=== PATIENT | female | born 1935 | race Caucasian/White ===

== ENCOUNTER 2017-10-18 09:28 | Outpatient (CLI) | payer MEDICARE ==
[~2017-10-18 09:28] MED LIST: ACET-812 PO; ALLO100T PO; AMLO2.5T2 PO; APIX5TAB3 PO; ATEN-169 PO; ATOR40TA PO; FERGLU300T PO; FURO-150 PO; LEVO125T PO; LISI40TA4 PO; PANT40TA4 PO; SERT50TA PO
[2017-10-18 10:02] LABS: ABSOLUTE RETICS # 98300 /CUMM (23000-93000); BASOPHILS % (AUTO) 0.4 % (0-1); EOSINOPHILS # (AUTO) 0.1 X10'3 (0-0.9); EOSINOPHILS % (AUTO) 1.7 % (0-6); HEMATOCRIT 39.2 % (35.0-45.0); HEMOGLOBIN 13.4 g/dl (12.0-16.0); LYMPHOCYTES # (AUTO) 2.6 X10'3 (1.1-4.8); LYMPHOCYTES % (AUTO) 36.5 % (21-51); MEAN CORPUSCULAR HEMOGLOBIN 30.5 PG (27.0-31.0); MEAN CORPUSCULAR HGB CONC 34.3 % (33.0-36.5); MEAN CORPUSCULAR VOLUME 89.1 FL (78-98); MEAN PLATELET VOLUME 8.4 FL (7.4-10.4); MONOCYTES # (AUTO) 0.6 X10'3 (0-0.9); MONOCYTES % (AUTO) 8.8 % (2-12); NEUTROPHILS # (AUTO) 3.8 X10'3 (1.8-7.7); NEUTROPHILS % (AUTO) 52.6 % (42-75); PLATELET COUNT 186 X10'3 (140-440); RED CELL DISTRIBUTION WIDTH 17.3 % (11.5-14.5); RETICULOCYTE % (AUTO) 2.2 % (0.5-1.5); WHITE BLOOD COUNT 7.1 X10'3 (4.5-11.0)
[2017-10-18 10:54] LABS: ALANINE AMINOTRANSFERASE 43 U/L (12-78); ALBUMIN 3.9 G/DL (3.4-5.0); ALBUMIN/GLOBULIN RATIO 1.4 (1.1-1.5); ALKALINE PHOSPHATASE 518 IU/L (46-116); ANION GAP 10 (8-16); ASPARTATE AMINO TRANSFERASE 36 U/L (10-37); BILIRUBIN,TOTAL 1.5 MG/DL (0.1-1.0); BLOOD UREA NITROGEN 26 MG/DL (7-18); BUN/CREATININE RATIO 16.1 (6.6-38.0); CALCIUM 8.7 MG/DL (8.5-10.1); CHLORIDE 104 MMOL/L (99-107); CREATININE 1.61 MG/DL (0.40-0.90); FERRITIN 148 NG/ML (8-252); GLUCOSE 110 MG/DL (70-104); LACTATE DEHYDROGENASE 243 U/L (81-234); POTASSIUM 3.9 MMOL/L (3.5-5.1); SODIUM 142 MMOL/L (135-145); TOTAL CARBON DIOXIDE 28.5 MMOL/L (24-32); TOTAL PROTEIN 6.7 G/DL (6.4-8.2); eGFR 31 ML/MIN
[2017-10-18 10:58] LABS: % IRON SATURATION 33 % (11-46); IRON 87 UG/DL (49-151); TOTAL IRON BINDING CAPACITY 267 UG/DL (259-388)
== END 2017-10-18 23:59 | disposition home or self-care (01) ==
LOC: LAB 09:28
PROVIDERS: ATTEND Internal Medicine Hematology & Oncology
DX: C85.90 Non-Hodgkin lymphoma, unspecified, unspecified site (principal); C83.00 Small cell B-cell lymphoma, unspecified site; D64.9 Anemia, unspecified; J44.9 Chronic obstructive pulmonary disease, unspecified; I10 Essential (primary) hypertension
CPT/HCPCS: 36415; 80053; 82607; 82728; 83540; 83550; 83615; 84550; 85025; 85045; 85651

== ENCOUNTER 2018-08-01 08:37 | Day surgery (SDC) | payer MEDICARE ==
[~2018-08-01] VITALS: Ht 160 cm; Wt 64.4 kg
[2018-08-01] MEDS ORDERED: levoFLOXACIN-Levaquin 500mg/D5 100 ML IV ONE (09:15)
[2018-08-01] MEDS ORDERED: metroNIDAZOLE-Flagyl 500mg/NS 100ml IVPB IV ONE (09:15)
[2018-08-01] MEDS ORDERED: PRED5TAB PO (09:27)
[2018-08-01] MEDS ORDERED: CEFD300C3 PO (09:27)
[2018-08-01] MEDS ORDERED: DILT240C10 PO (09:27)
[2018-08-01] MEDS ORDERED: ALB0.5UD IH (09:27)
[2018-08-01] MEDS ORDERED: METO25TA6 PO (09:27)
[2018-08-01] MEDS ORDERED: LORA-512 PO (09:27)
[2018-08-01] MEDS ORDERED: iohexol 300 MG/1 ML 50ml polymer ONE ×2 (09:50→09:52)
[2018-08-01] MEDS ORDERED: LIDOcaine 1%/PF 5ML 10 MG/ML VIAL ONE (09:50)
[2018-08-01 10:02] LABS: BASOPHILS % (AUTO) 0.7 % (0-1); EOSINOPHILS # (AUTO) 0.1 X10'3 (0-0.9); EOSINOPHILS % (AUTO) 1.7 % (0-6); HEMATOCRIT 36.9 % (35.0-45.0); HEMOGLOBIN 12.1 g/dl (12.0-16.0); LYMPHOCYTES # (AUTO) 1.8 X10'3 (1.1-4.8); LYMPHOCYTES % (AUTO) 35.8 % (21-51); MEAN CORPUSCULAR HEMOGLOBIN 27.7 PG (27.0-31.0); MEAN CORPUSCULAR HGB CONC 32.9 g/dL (33.0-36.5); MEAN CORPUSCULAR VOLUME 84.2 FL (78-98); MEAN PLATELET VOLUME 8.4 FL (7.4-10.4); MONOCYTES # (AUTO) 0.5 X10'3 (0-0.9); MONOCYTES % (AUTO) 10.4 % (2-12); NEUTROPHILS # (AUTO) 2.5 X10'3 (1.8-7.7); NEUTROPHILS % (AUTO) 51.4 % (42-75); PLATELET COUNT 195 X10'3 (140-440); RED BLOOD COUNT 4.38 X10'6 (4.20-5.60); RED CELL DISTRIBUTION WIDTH 16.3 % (11.5-14.5); WHITE BLOOD COUNT 4.9 X10'3 (4.5-11.0)
[2018-08-01 10:17] LABS: ALBUMIN 3.5 G/DL (3.4-5.0); ANION GAP 10 (8-16); BLOOD UREA NITROGEN 17 MG/DL (7-18); BUN/CREATININE RATIO 14.9 (6.6-38.0); CALCIUM 8.2 MG/DL (8.5-10.1); CHLORIDE 106 MMOL/L (99-107); CREATININE 1.14 MG/DL (0.40-0.90); GLUCOSE 130 MG/DL (70-104); POTASSIUM 3.7 MMOL/L (3.5-5.1); SODIUM 142 MMOL/L (135-145); TOTAL CARBON DIOXIDE 26.4 MMOL/L (24-32); eGFR 46 ML/MIN
[2018-08-01 10:28] LABS: INR 1.1 INR
[2018-08-01] MEDS ORDERED: midazolam 2 mg/2 ml injection ONE (10:32)
[2018-08-01] MEDS ORDERED: fentaNYL/PF 50MCG/1 ML 2ML syringe ONE (10:32)
[2018-08-01] MEDS ORDERED: LIDOcaine 1%/PF 5ML 10 MG/ML VIAL SQ ONE (10:35)
[2018-08-01] MEDS ORDERED: fentaNYL/PF 50MCG/1 ML 2ML syringe IV PRN (10:35)
[2018-08-01] MEDS ORDERED: midazolam 2 mg/2 ml injection IV PRN (10:35)
[2018-08-01 10:55] VITALS: BP 137/84
[2018-08-01 11:10] VITALS: BP 163/68
[2018-08-01 11:25] VITALS: BP 151/70
[2018-08-01 11:40] VITALS: BP 111/64
[2018-08-01 12:10] VITALS: BP 108/58
[2018-08-01 12:40] VITALS: BP 106/61
== END 2018-08-01 12:45 | disposition home or self-care (01) ==
LOC: SSTAY O 08:37
PROVIDERS: ATTEND Radiology Vascular & Interventional Radiology
DX: K83.1 Obstruction of bile duct (principal); Z48.03 Encounter for change or removal of drains; Z79.899 Other long term (current) drug therapy; Z88.0 Allergy status to penicillin; Z88.8 Allergy status to other drugs, medicaments and biological substances; Z82.49 Family history of ischemic heart disease and other diseases of the circulatory system; Z88.6 Allergy status to analgesic agent
CPT/HCPCS: 36415; 47536; 80048; 85025; 85610; C1769; J1956; J2001; J2250; J3010; J3490; Q9967

== ENCOUNTER 2019-01-16 08:25 | Day surgery (SDC) | payer MEDICARE ==
[~2019-01-16] VITALS: Ht 162.6 cm; Wt 60.9 kg
[~2019-01-16 08:25] MED LIST changes: -ACET-812 PO; +ALB0.5UD IH; -ALLO100T PO; -AMLO2.5T2 PO; -ATEN-169 PO; +CEFD300C3 PO; +DILT240C10 PO; -FERGLU300T PO; +LORA-512 PO; +METO25TA6 PO; +PRED5TAB PO
[2019-01-16 08:46] VITALS: BP 142/99
[2019-01-16] MEDS ORDERED: normal saline 1000ml 1,000 ML IV PRN (08:55)
[2019-01-16] MEDS ORDERED: clindamycin 600mg/D5W 50ml 50 ML IV ONE (08:55)
[2019-01-16] MEDS ORDERED: LIDOcaine 1%/PF 5ML 10 MG/ML VIAL SQ ONE (09:55)
[2019-01-16] MEDS ORDERED: midazolam 2 mg/2 ml injection IV PRN (09:55)
[2019-01-16] MEDS ORDERED: fentaNYL/PF 50MCG/1 ML 2ML syringe IV PRN (09:55)
[2019-01-16] MEDS ORDERED: LIDOcaine 1%/PF 5ML 10 MG/ML VIAL ONE (09:57)
[2019-01-16] MEDS ORDERED: iohexol 300 MG/1 ML 50ml polymer ONE (09:57)
[2019-01-16] MEDS ORDERED: fentaNYL/PF 50MCG/1 ML 2ML syringe ONE (09:59)
[2019-01-16] MEDS ORDERED: midazolam 2 mg/2 ml injection ONE (09:59)
[2019-01-16 10:40] VITALS: BP 128/59
[2019-01-16 10:55] VITALS: BP 126/52
[2019-01-16 11:05] VITALS: BP 117/61
[2019-01-16 11:20] VITALS: BP 117/73
== END 2019-01-16 12:35 | disposition home or self-care (01) ==
LOC: SSTAY O 08:25
PROVIDERS: ATTEND Radiology Vascular & Interventional Radiology
DX: Z48.03 Encounter for change or removal of drains (principal); K83.1 Obstruction of bile duct; I48.91 Unspecified atrial fibrillation; I10 Essential (primary) hypertension; E78.5 Hyperlipidemia, unspecified; E03.9 Hypothyroidism, unspecified; K21.9 Gastro-esophageal reflux disease without esophagitis; Z88.5 Allergy status to narcotic agent; Z88.0 Allergy status to penicillin; Z79.899 Other long term (current) drug therapy; Z85.05 Personal history of malignant neoplasm of liver; Z90.49 Acquired absence of other specified parts of digestive tract; Z98.890 Other specified postprocedural states
CPT/HCPCS: 47536; J2250; J3010; J7030; Q9967; C1729; C1769; J3490

== ENCOUNTER 2019-05-22 08:11 | Day surgery (SDC) | payer MEDICARE ==
[~2019-05-22] VITALS: Ht 160 cm; Wt 62.9 kg
[~2019-05-22 08:11] MED LIST changes: -CEFD300C3 PO; -LORA-512 PO
[2019-05-22] MEDS ORDERED: normal saline 1000ml 1,000 ML IV SCH (08:35)
[2019-05-22] MEDS ORDERED: cefazolin/dext.iso 2gm/100ml 100 ML IV ONE (08:35)
[2019-05-22 08:45] VITALS: BP 131/84
[2019-05-22 09:13] LABS: BASOPHILS % (AUTO) 0.5 % (0-1); EOSINOPHILS # (AUTO) 0.1 X10'3 (0-0.9); EOSINOPHILS % (AUTO) 1.2 % (0-6); HEMATOCRIT 33.3 % (35.0-45.0); LYMPHOCYTES # (AUTO) 1.9 X10'3 (1.1-4.8); LYMPHOCYTES % (AUTO) 26.5 % (21-51); MEAN CORPUSCULAR HEMOGLOBIN 27.4 PG (27.0-31.0); MEAN CORPUSCULAR HGB CONC 33.1 g/dL (33.0-36.5); MEAN CORPUSCULAR VOLUME 82.7 FL (78-98); MEAN PLATELET VOLUME 8.4 FL (7.4-10.4); MONOCYTES # (AUTO) 0.7 X10'3 (0-0.9); MONOCYTES % (AUTO) 9.8 % (2-12); NEUTROPHILS # (AUTO) 4.5 X10'3 (1.8-7.7); PLATELET COUNT 204 X10'3 (140-440); RED BLOOD COUNT 4.03 X10'6 (4.20-5.60); RED CELL DISTRIBUTION WIDTH 15.6 % (11.5-14.5); WHITE BLOOD COUNT 7.3 X10'3 (4.5-11.0)
[2019-05-22 09:17] LABS: ALBUMIN 3.3 G/DL (3.4-5.0); ANION GAP 6 (8-16); BLOOD UREA NITROGEN 23 MG/DL (7-18); CALCIUM 8.8 MG/DL (8.5-10.1); CHLORIDE 109 MMOL/L (99-107); CREATININE 1.15 MG/DL (0.40-0.90); GLUCOSE 137 MG/DL (70-104); SODIUM 145 MMOL/L (135-145); eGFR 45 ML/MIN
[2019-05-22] MEDS ORDERED: BENZ1LOZ61 PO (09:22)
[2019-05-22] MEDS ORDERED: LORA10CA PO (09:22)
[2019-05-22] MEDS ORDERED: MULT-1085 PO (09:22)
[2019-05-22] MEDS ORDERED: DOCU-148 PO (09:22)
[2019-05-22] MEDS ORDERED: POTA10TA19 PO (09:22)
[2019-05-22] MEDS ORDERED: iohexol 300 MG/1 ML 50ml polymer ONE (09:43)
[2019-05-22] MEDS ORDERED: fentaNYL/PF 50MCG/1 ML 2ML syringe ONE (10:23)
[2019-05-22] MEDS ORDERED: levoFLOXACIN-Levaquin 500mg/D5 100 ML IV ONE ×2 (10:35)
[2019-05-22 11:21] VITALS: BP 157/94
[2019-05-22 11:30] VITALS: BP 150/90
[2019-05-22 11:45] VITALS: BP 128/72
== END 2019-05-22 12:25 | disposition home or self-care (01) ==
LOC: SSTAY O 08:11
PROVIDERS: ATTEND Radiology Diagnostic Radiology
DX: Z48.03 Encounter for change or removal of drains (principal); Z88.0 Allergy status to penicillin; Z88.6 Allergy status to analgesic agent; Z88.8 Allergy status to other drugs, medicaments and biological substances; Z79.899 Other long term (current) drug therapy; Z82.49 Family history of ischemic heart disease and other diseases of the circulatory system
CPT/HCPCS: 36415; 47536; 80048; 85025; C1729; C1769; J3010; Q9967

== ENCOUNTER 2019-07-28 06:51 | Day surgery (SDC) | payer MEDICARE ==
[~2019-07-28] VITALS: Ht 157.5 cm; Wt 61.8 kg
[~2019-07-28 06:51] MED LIST changes: +BENZ1LOZ61 PO; +DOCU-148 PO; -LISI40TA4 PO; +LORA10CA PO; +MULT-1085 PO; +POTA10TA19 PO; -PRED5TAB PO
[2019-07-28] MEDS ORDERED: normal saline 1000ml 1,000 ML IV PRN (07:15)
[2019-07-28 07:20] VITALS: BP 151/82
[2019-07-28] MEDS ORDERED: levoFLOXACIN-Levaquin 500mg/D5 100 ML IV ONE (08:35)
[2019-07-28] MEDS ORDERED: fentaNYL/PF 50MCG/1 ML 2ML syringe ONE (08:41)
[2019-07-28] MEDS ORDERED: iohexol 300 MG/1 ML 50ml polymer ONE (09:09)
[2019-07-28] MEDS ORDERED: LIDOcaine 1%/PF 5ML 10 MG/ML VIAL ONE (09:09)
[2019-07-28 09:30] VITALS: BP 140/87
[2019-07-28 09:45] VITALS: BP 130/91
[2019-07-28 10:00] VITALS: BP 126/83
[2019-07-28 10:15] VITALS: BP 132/84
[2019-07-28 10:30] VITALS: BP 140/82
== END 2019-07-28 11:30 | disposition home or self-care (01) ==
LOC: SSTAY O 06:51
PROVIDERS: ATTEND Radiology Vascular & Interventional Radiology
DX: Z48.03 Encounter for change or removal of drains (principal)
CPT/HCPCS: 47536; C1729; C1769; J3010; Q9967

== ENCOUNTER 2019-08-04 12:36 | Day surgery (SDC) | payer MEDICARE ==
[2019-08-04] VITALS (8 sets, daily range): BP systolic 104–122; BP diastolic 48–69
[~2019-08-04] VITALS: Ht 157.5 cm; Wt 60.9 kg
[~2019-08-04 12:36] MED LIST changes: -BENZ1LOZ61 PO
[2019-08-04] MEDS ORDERED: clindamycin 600mg/D5W 50ml 50 ML IV ONE (13:00)
[2019-08-04] MEDS ORDERED: normal saline 1000ml 1,000 ML IV SCH (13:00)
[2019-08-04 13:57] LABS: BASOPHILS % (AUTO) 0.3 % (0-1); EOSINOPHILS % (AUTO) 0.6 % (0-6); HEMOGLOBIN 11.5 g/dl (12.0-16.0); LYMPHOCYTES # (AUTO) 1.7 X10'3 (1.1-4.8); LYMPHOCYTES % (AUTO) 23.3 % (21-51); MEAN CORPUSCULAR HEMOGLOBIN 25.5 PG (27.0-31.0); MEAN CORPUSCULAR HGB CONC 31.9 g/dL (33.0-36.5); MEAN CORPUSCULAR VOLUME 79.9 FL (78-98); MEAN PLATELET VOLUME 8.7 FL (7.4-10.4); MONOCYTES # (AUTO) 0.7 X10'3 (0-0.9); NEUTROPHILS # (AUTO) 4.8 X10'3 (1.8-7.7); NEUTROPHILS % (AUTO) 65.8 % (42-75); PLATELET COUNT 177 X10'3 (140-440); RED BLOOD COUNT 4.51 X10'6 (4.20-5.60); RED CELL DISTRIBUTION WIDTH 18.1 % (11.5-14.5); WHITE BLOOD COUNT 7.3 X10'3 (4.5-11.0)
[2019-08-04 14:02] LABS: ALBUMIN 3.2 G/DL (3.4-5.0); ANION GAP 9 (8-16); BLOOD UREA NITROGEN 22 MG/DL (7-18); CALCIUM 8.2 MG/DL (8.5-10.1); CHLORIDE 107 MMOL/L (99-107); GLUCOSE 103 MG/DL (70-104); POTASSIUM 3.1 MMOL/L (3.5-5.1); SODIUM 142 MMOL/L (135-145); TOTAL CARBON DIOXIDE 26.3 MMOL/L (24-32); eGFR 47 ML/MIN
[2019-08-04] MEDS ORDERED: levoFLOXACIN-Levaquin 500mg/D5 100 ML IV ONE (14:15)
[2019-08-04] MEDS ORDERED: fentaNYL/PF 50MCG/1 ML 2ML syringe ONE (14:29)
[2019-08-04] MEDS ORDERED: midazolam 2 mg/2 ml injection ONE (14:41)
[2019-08-04] MEDS ORDERED: iohexol 300 MG/1 ML 50ml polymer ONE (14:48)
[2019-08-04] MEDS ORDERED: LIDOcaine 1%/PF 5ML 10 MG/ML VIAL ONE (14:48)
== END 2019-08-04 17:20 | disposition home or self-care (01) ==
LOC: SSTAY O 12:36
PROVIDERS: ATTEND Radiology Diagnostic Radiology
DX: Z48.03 Encounter for change or removal of drains (principal); Z79.01 Long term (current) use of anticoagulants
CPT/HCPCS: 36415; 47536; 80048; 85025; 85610; C1729; C1769; J2250; J3010; J7030; Q9967

== ENCOUNTER 2019-09-06 08:43 | Day surgery (SDC) | payer MEDICARE ==
[~2019-09-06] VITALS: Ht 157.5 cm; Wt 62.2 kg
[~2019-09-06 08:43] MED LIST changes: -ALB0.5UD IH
[2019-09-06] MEDS ORDERED: clindamycin 600mg/D5W 50ml 50 ML IV ONE ×2 (09:15→10:26)
[2019-09-06] MEDS ORDERED: normal saline 1000ml 1,000 ML IV SCH (09:15)
[2019-09-06 09:30] VITALS: BP 154/107
[2019-09-06 10:11] LABS: BASOPHILS % (AUTO) 0.7 % (0-1); EOSINOPHILS # (AUTO) 0.2 X10'3 (0-0.9); EOSINOPHILS % (AUTO) 3.3 % (0-6); HEMATOCRIT 31.8 % (35.0-45.0); HEMOGLOBIN 10.2 g/dl (12.0-16.0); LYMPHOCYTES % (AUTO) 19.9 % (21-51); MEAN CORPUSCULAR HEMOGLOBIN 25.3 PG (27.0-31.0); MEAN CORPUSCULAR HGB CONC 32.1 g/dL (33.0-36.5); MEAN CORPUSCULAR VOLUME 78.9 FL (78-98); MEAN PLATELET VOLUME 8.3 FL (7.4-10.4); MONOCYTES # (AUTO) 0.5 X10'3 (0-0.9); MONOCYTES % (AUTO) 9.8 % (2-12); NEUTROPHILS # (AUTO) 3.3 X10'3 (1.8-7.7); NEUTROPHILS % (AUTO) 66.3 % (42-75); PLATELET COUNT 148 X10'3 (140-440); RED BLOOD COUNT 4.03 X10'6 (4.20-5.60); RED CELL DISTRIBUTION WIDTH 17.4 % (11.5-14.5)
[2019-09-06] MEDS ORDERED: iohexol 300 MG/1 ML 50ml polymer ONE (10:20)
[2019-09-06] MEDS ORDERED: fentaNYL/PF 50MCG/1 ML 2ML syringe ONE (10:26)
[2019-09-06] MEDS ORDERED: midazolam 2 mg/2 ml injection ONE (10:26)
[2019-09-06 11:07] VITALS: BP 150/76
== END 2019-09-06 13:00 | disposition home or self-care (01) ==
LOC: SSTAY O 08:43
PROVIDERS: ATTEND Radiology Diagnostic Radiology
DX: T85.638A Leakage of other specified internal prosthetic devices, implants and grafts, initial encounter (principal); Z88.0 Allergy status to penicillin; Z88.5 Allergy status to narcotic agent; Z88.1 Allergy status to other antibiotic agents; Z79.899 Other long term (current) drug therapy; Z82.49 Family history of ischemic heart disease and other diseases of the circulatory system; Y83.8 Other surgical procedures as the cause of abnormal reaction of the patient, or of later complication, without mention of misadventure at the time of the procedure; Y92.89 Other specified places as the place of occurrence of the external cause
CPT/HCPCS: 36415; 47531; 85025; J2250; J3010; J7030; Q9967; J3490

== ENCOUNTER 2019-11-03 06:32 | Day surgery (SDC) | payer MEDICARE ==
[~2019-11-03] VITALS: Ht 157.5 cm; Wt 62.8 kg
[2019-11-03] MEDS ORDERED: normal saline 1000ml 1,000 ML IV PRN (06:55)
[2019-11-03 07:30] VITALS: BP 159/83
[2019-11-03 07:33] LABS: BASOPHILS % (AUTO) 0.6 % (0-1); EOSINOPHILS # (AUTO) 0.1 X10'3 (0-0.9); EOSINOPHILS % (AUTO) 1.1 % (0-6); HEMATOCRIT 30.1 % (35.0-45.0); HEMOGLOBIN 9.7 g/dl (12.0-16.0); LYMPHOCYTES # (AUTO) 1.3 X10'3 (1.1-4.8); LYMPHOCYTES % (AUTO) 21.3 % (21-51); MEAN CORPUSCULAR HEMOGLOBIN 26.2 PG (27.0-31.0); MEAN CORPUSCULAR HGB CONC 32.2 g/dL (33.0-36.5); MEAN CORPUSCULAR VOLUME 81.2 FL (78-98); MONOCYTES # (AUTO) 0.7 X10'3 (0-0.9); MONOCYTES % (AUTO) 11.1 % (2-12); NEUTROPHILS # (AUTO) 4.1 X10'3 (1.8-7.7); NEUTROPHILS % (AUTO) 65.9 % (42-75); PLATELET COUNT 125 X10'3 (140-440); RED BLOOD COUNT 3.71 X10'6 (4.20-5.60); RED CELL DISTRIBUTION WIDTH 20.9 % (11.5-14.5); WHITE BLOOD COUNT 6.2 X10'3 (4.5-11.0)
[2019-11-03 08:08] LABS: ANISOCYTOSIS 3+; MICROCYTOSIS 1+; PLATELET ESTIMATE DECREASED
[2019-11-03 08:09] LABS: POIKILOCYTOSIS 1+
[2019-11-03] MEDS ORDERED: levoFLOXACIN-Levaquin 500mg/D5 100 ML IV ONE (08:40)
[2019-11-03] MEDS ORDERED: fentaNYL/PF 50MCG/1 ML 2ML syringe ONE (08:42)
[2019-11-03] MEDS ORDERED: iohexol 300 MG/1 ML 50ml polymer ONE (08:44)
[2019-11-03 09:48] VITALS: BP 119/89
[2019-11-03 10:01] VITALS: BP 147/99
[2019-11-03 10:15] VITALS: BP 122/93
[2019-11-03 10:30] VITALS: BP 126/97
[2019-11-03 10:45] VITALS: BP 113/85
== END 2019-11-03 11:30 | disposition home or self-care (01) ==
LOC: SSTAY O 06:32
PROVIDERS: ATTEND Radiology Diagnostic Radiology
DX: T85.590A Other mechanical complication of bile duct prosthesis, initial encounter (principal); E78.5 Hyperlipidemia, unspecified; E03.9 Hypothyroidism, unspecified; I10 Essential (primary) hypertension; F32.9 Major depressive disorder, single episode, unspecified; I48.91 Unspecified atrial fibrillation; Z88.0 Allergy status to penicillin; Z88.5 Allergy status to narcotic agent; Z88.1 Allergy status to other antibiotic agents; Z79.899 Other long term (current) drug therapy; Y83.8 Other surgical procedures as the cause of abnormal reaction of the patient, or of later complication, without mention of misadventure at the time of the procedure; Y92.89 Other specified places as the place of occurrence of the external cause
CPT/HCPCS: 36415; 47536; 85025; C1729; C1769; J3010; Q9967; 85008

== ENCOUNTER 2020-01-30 08:21 | Day surgery (SDC) | payer MEDICARE ==
[~2020-01-30] VITALS: Ht 157.5 cm; Wt 63.6 kg
[~2020-01-30 08:21] MED LIST changes: -PANT40TA4 PO; +PANT40TA54 PO
[2020-01-30] MEDS ORDERED: levoFLOXACIN-Levaquin 500mg/D5 100 ML IV ONE (08:40)
[2020-01-30] MEDS ORDERED: normal saline 1000ml 1,000 ML IV SCH (08:40)
[2020-01-30 09:00] VITALS: BP 133/67
[2020-01-30 09:37] LABS: BASOPHILS % (AUTO) 0.5 % (0-1); EOSINOPHILS # (AUTO) 0.1 X10'3 (0-0.9); HEMATOCRIT 31.9 % (35.0-45.0); HEMOGLOBIN 10.2 g/dl (12.0-16.0); LYMPHOCYTES # (AUTO) 1.1 X10'3 (1.1-4.8); LYMPHOCYTES % (AUTO) 19.8 % (21-51); MEAN CORPUSCULAR HEMOGLOBIN 25.7 PG (27.0-31.0); MEAN CORPUSCULAR HGB CONC 31.9 g/dL (33.0-36.5); MEAN CORPUSCULAR VOLUME 80.4 FL (78-98); MEAN PLATELET VOLUME 8.5 FL (7.4-10.4); MONOCYTES # (AUTO) 0.5 X10'3 (0-0.9); MONOCYTES % (AUTO) 9.3 % (2-12); NEUTROPHILS % (AUTO) 69.4 % (42-75); PLATELET COUNT 164 X10'3 (140-440); RED BLOOD COUNT 3.97 X10'6 (4.20-5.60); RED CELL DISTRIBUTION WIDTH 17.2 % (11.5-14.5); WHITE BLOOD COUNT 5.7 X10'3 (4.5-11.0)
[2020-01-30] MEDS ORDERED: iohexol 300 MG/1 ML 50ml polymer ONE (10:18)
[2020-01-30] MEDS ORDERED: LIDOcaine 1%/PF 5ML 10 MG/ML VIAL ONE (10:18)
[2020-01-30 11:15] VITALS: BP 149/100
== END 2020-01-30 11:50 | disposition home or self-care (01) ==
LOC: SSTAY O 08:21
PROVIDERS: ATTEND Radiology Diagnostic Radiology
DX: T85.590A Other mechanical complication of bile duct prosthesis, initial encounter (principal); E78.5 Hyperlipidemia, unspecified; I10 Essential (primary) hypertension; E03.9 Hypothyroidism, unspecified; F32.9 Major depressive disorder, single episode, unspecified; I48.91 Unspecified atrial fibrillation; Z88.0 Allergy status to penicillin; Z88.5 Allergy status to narcotic agent; Z88.1 Allergy status to other antibiotic agents; Z79.899 Other long term (current) drug therapy; Y83.8 Other surgical procedures as the cause of abnormal reaction of the patient, or of later complication, without mention of misadventure at the time of the procedure; Y92.89 Other specified places as the place of occurrence of the external cause
CPT/HCPCS: 36415; 47536; 85025; C1729; C1769; Q9967

== ENCOUNTER 2020-08-19 08:44 | Day surgery (SDC) | payer MEDICARE ==
[~2020-08-19] VITALS: Ht 157.5 cm; Wt 118.0 kg
[~2020-08-19 08:44] MED LIST changes: +LOP25T PO; -METO25TA6 PO
[2020-08-19] MEDS ORDERED: normal saline 1000ml 1,000 ML IV SCH (09:10)
[2020-08-19 09:12] VITALS: BP 178/131
[2020-08-19] MEDS ORDERED: LIDOcaine 1%/PF 5ML 10 MG/ML VIAL ONE (10:43)
[2020-08-19] MEDS ORDERED: iohexol 300 MG/1 ML 50ml polymer ONE (10:44)
[2020-08-19 11:58] VITALS: BP 165/128
[2020-08-19 12:15] VITALS: BP 146/86
[2020-08-19 12:30] VITALS: BP 126/63
[2020-08-19 12:44] VITALS: BP 116/68
== END 2020-08-19 13:25 | disposition home or self-care (01) ==
LOC: SSTAY O 08:44
PROVIDERS: ATTEND Radiology Diagnostic Radiology
DX: T85.898A Other specified complication of other internal prosthetic devices, implants and grafts, initial encounter (principal); Y83.8 Other surgical procedures as the cause of abnormal reaction of the patient, or of later complication, without mention of misadventure at the time of the procedure; Z88.0 Allergy status to penicillin; Z88.6 Allergy status to analgesic agent; Z88.8 Allergy status to other drugs, medicaments and biological substances; Z79.899 Other long term (current) drug therapy
CPT/HCPCS: 47536; C1729; C1769; Q9967

== ENCOUNTER 2020-12-12 08:28 | Day surgery (SDC) | payer MEDICARE ==
[~2020-12-12] VITALS: Ht 160 cm; Wt 64.5 kg
[2020-12-12] MEDS ORDERED: normal saline 1000ml 1,000 ML IV SCH ×2 (08:55→10:45)
[2020-12-12] MEDS ORDERED: levoFLOXACIN-Levaquin 500mg/D5 100 ML IV ONE (09:10)
[2020-12-12 09:30] LABS: BASOPHILS % (AUTO) 0.5 % (0-1); EOSINOPHILS % (AUTO) 0.6 % (0-6); HEMOGLOBIN 10.2 g/dl (12.0-16.0); LYMPHOCYTES # (AUTO) 0.9 X10'3 (1.1-4.8); LYMPHOCYTES % (AUTO) 21.1 % (21-51); MEAN CORPUSCULAR HEMOGLOBIN 25.8 PG (27.0-31.0); MEAN CORPUSCULAR HGB CONC 31.8 g/dL (33.0-36.5); MEAN CORPUSCULAR VOLUME 81.2 FL (78-98); MEAN PLATELET VOLUME 8.4 FL (7.4-10.4); MONOCYTES # (AUTO) 0.5 X10'3 (0-0.9); NEUTROPHILS % (AUTO) 66.8 % (42-75); PLATELET COUNT 161 X10'3 (140-440); RED BLOOD COUNT 3.95 X10'6 (4.20-5.60); RED CELL DISTRIBUTION WIDTH 18.8 % (11.5-14.5); WHITE BLOOD COUNT 4.4 X10'3 (4.5-11.0)
[2020-12-12 09:32] VITALS: BP 149/96
[2020-12-12] MEDS ORDERED: LIDOcaine 1%/PF 5ML 10 MG/ML VIAL ONE (09:55)
[2020-12-12] MEDS ORDERED: iohexol 300 MG/1 ML 50ml polymer ONE (09:55)
[2020-12-12] MEDS ORDERED: fentaNYL/PF 50MCG/1 ML 2ML syringe ONE (10:13)
[2020-12-12 10:30] LABS: ANISOCYTOSIS 2+; BURR CELLS FEW; ELLIPTOCYTES 2+; PLATELET ESTIMATE NORMAL; SCHISTOCYTES FEW
[2020-12-12 10:50] VITALS: BP 160/60
[2020-12-12 11:05] VITALS: BP 120/77
[2020-12-12 11:20] VITALS: BP 127/66
[2020-12-12 11:35] VITALS: BP 120/66
== END 2020-12-12 12:08 | disposition home or self-care (01) ==
LOC: SSTAY O 08:28
PROVIDERS: ATTEND Radiology Diagnostic Radiology
DX: T85.590A Other mechanical complication of bile duct prosthesis, initial encounter (principal); K83.1 Obstruction of bile duct; E78.5 Hyperlipidemia, unspecified; I10 Essential (primary) hypertension; E03.9 Hypothyroidism, unspecified; F32.9 Major depressive disorder, single episode, unspecified; I48.91 Unspecified atrial fibrillation; Z88.0 Allergy status to penicillin; Z88.5 Allergy status to narcotic agent; Z88.1 Allergy status to other antibiotic agents; Z79.899 Other long term (current) drug therapy; Z79.01 Long term (current) use of anticoagulants; Z82.49 Family history of ischemic heart disease and other diseases of the circulatory system; Y83.8 Other surgical procedures as the cause of abnormal reaction of the patient, or of later complication, without mention of misadventure at the time of the procedure; Y92.89 Other specified places as the place of occurrence of the external cause
CPT/HCPCS: 36415; 47536; 85025; 85610; C1729; C1769; J3010; Q9967; 85008

== ENCOUNTER 2021-03-03 06:40 | Day surgery (SDC) | payer MEDICARE ==
[~2021-03-03] VITALS: Ht 157.5 cm; Wt 64.4 kg
[~2021-03-03 06:40] MED LIST changes: -POTA10TA19 PO
[2021-03-03] MEDS ORDERED: normal saline 1000ml 1,000 ML IV SCH ×2 (07:10→08:50)
[2021-03-03 07:26] VITALS: BP 135/51
[2021-03-03 07:51] LABS: BASOPHILS % (AUTO) 0.6 % (0-1); EOSINOPHILS % (AUTO) 0.6 % (0-6); HEMATOCRIT 29.2 % (35.0-45.0); HEMOGLOBIN 9.4 g/dl (12.0-16.0); LYMPHOCYTES # (AUTO) 1.1 X10'3 (1.1-4.8); LYMPHOCYTES % (AUTO) 18.2 % (21-51); MEAN CORPUSCULAR HEMOGLOBIN 24.9 PG (27.0-31.0); MEAN CORPUSCULAR HGB CONC 32.1 g/dL (33.0-36.5); MEAN CORPUSCULAR VOLUME 77.7 FL (78-98); MEAN PLATELET VOLUME 8.6 FL (7.4-10.4); MONOCYTES # (AUTO) 0.8 X10'3 (0-0.9); MONOCYTES % (AUTO) 12.5 % (2-12); NEUTROPHILS # (AUTO) 4.3 X10'3 (1.8-7.7); NEUTROPHILS % (AUTO) 68.1 % (42-75); PLATELET COUNT 169 X10'3 (140-440); RED BLOOD COUNT 3.76 X10'6 (4.20-5.60); RED CELL DISTRIBUTION WIDTH 19.7 % (11.5-14.5); WHITE BLOOD COUNT 6.3 X10'3 (4.5-11.0)
[2021-03-03 08:16] LABS: ANISOCYTOSIS 2+; ELLIPTOCYTES FEW; GIANT PLATELET FEW; LARGE PLATELETS FEW; MICROCYTOSIS 1+; PLATELET ESTIMATE NORMAL; SCHISTOCYTES FEW; TEAR DROP CELLS FEW
[2021-03-03] MEDS ORDERED: LIDOcaine 1% (10mg/ml) 2ml vial ONE (08:39)
[2021-03-03] MEDS ORDERED: iohexol 300 MG/1 ML 50ml polymer ONE (08:39)
[2021-03-03] MEDS ORDERED: levoFLOXACIN-Levaquin 500mg/D5 100 ML IV ONE (08:50)
[2021-03-03] MEDS ORDERED: fentaNYL/PF 50MCG/1 ML 2ML syringe ONE (09:00)
[2021-03-03 09:33] VITALS: BP 136/55
[2021-03-03 09:47] VITALS: BP 129/41
[2021-03-03 10:02] VITALS: BP 126/51
[2021-03-03 10:15] VITALS: BP 122/50
== END 2021-03-03 10:30 | disposition home or self-care (01) ==
LOC: SSTAY O 06:40
PROVIDERS: ATTEND Radiology Diagnostic Radiology
DX: Z48.03 Encounter for change or removal of drains (principal); I10 Essential (primary) hypertension; E78.5 Hyperlipidemia, unspecified; I48.91 Unspecified atrial fibrillation; F32.9 Major depressive disorder, single episode, unspecified; Z88.0 Allergy status to penicillin; Z88.5 Allergy status to narcotic agent; Z88.1 Allergy status to other antibiotic agents; Z79.899 Other long term (current) drug therapy; Z82.49 Family history of ischemic heart disease and other diseases of the circulatory system
CPT/HCPCS: 36415; 47536; 85025; C1729; C1769; J3010; J3490; Q9967; 85008

== ENCOUNTER 2021-05-27 08:38 | Day surgery (SDC) | payer MEDICARE ==
[~2021-05-27] VITALS: Ht 157.5 cm; Wt 64.7 kg
[2021-05-27] MEDS ORDERED: normal saline 1000ml 1,000 ML IV PRN (09:10)
[2021-05-27] MEDS ORDERED: LORA-269 PO (09:20)
[2021-05-27 10:07] VITALS: BP 132/68
[2021-05-27] MEDS ORDERED: LIDOcaine 1% (10mg/ml) 2ml vial ONE (10:47)
[2021-05-27] MEDS ORDERED: iohexol 300 MG/1 ML 50ml polymer ONE (10:48)
[2021-05-27 11:30] VITALS: BP 126/63
== END 2021-05-27 12:08 ==
LOC: SSTAY O 08:38
PROVIDERS: ATTEND Radiology Vascular & Interventional Radiology
DX: Z48.03 Encounter for change or removal of drains (principal); K83.1 Obstruction of bile duct; Z88.0 Allergy status to penicillin; Z88.1 Allergy status to other antibiotic agents; Z88.5 Allergy status to narcotic agent; Z79.899 Other long term (current) drug therapy; Z79.01 Long term (current) use of anticoagulants; Z82.49 Family history of ischemic heart disease and other diseases of the circulatory system
CPT/HCPCS: 47536; C1729; C1769; J3490; Q9967

== ENCOUNTER 2022-01-27 08:41 | Day surgery (SDC) | payer MEDICARE ==
[2022-01-27] VITALS (7 sets, daily range): BP systolic 115–139; BP diastolic 50–70
[~2022-01-27] VITALS: Ht 160 cm; Wt 56.6 kg
[~2022-01-27 08:41] MED LIST changes: -ATOR40TA PO; -FURO-150 PO; +FURO40TA4 PO; +HYDR4TAB45 PO; -LOP25T PO; +POTA-192 PO; +SENN1TAB61 PO
[2022-01-27] MEDS ORDERED: normal saline 1000ml 1,000 ML IV PRN (09:05)
[2022-01-27 09:40] LABS: EOSINOPHILS % (AUTO) 0.9 % (0-6); HEMATOCRIT 33.4 % (35.0-45.0); HEMOGLOBIN 10.6 g/dl (12.0-16.0); LYMPHOCYTES # (AUTO) 1.2 X10'3 (1.1-4.8); LYMPHOCYTES % (AUTO) 27.1 % (21-51); MEAN CORPUSCULAR HEMOGLOBIN 27.3 PG (27.0-31.0); MEAN CORPUSCULAR HGB CONC 31.7 g/dL (33.0-36.5); MEAN CORPUSCULAR VOLUME 86.2 FL (78-98); MEAN PLATELET VOLUME 8.1 FL (7.4-10.4); MONOCYTES # (AUTO) 0.4 X10'3 (0-0.9); MONOCYTES % (AUTO) 10.2 % (2-12); NEUTROPHILS # (AUTO) 2.7 X10'3 (1.8-7.7); NEUTROPHILS % (AUTO) 60.8 % (42-75); PLATELET COUNT 161 X10'3 (140-440); RED BLOOD COUNT 3.88 X10'6 (4.20-5.60); RED CELL DISTRIBUTION WIDTH 18.4 % (11.5-14.5); WHITE BLOOD COUNT 4.4 X10'3 (4.5-11.0)
[2022-01-27] MEDS ORDERED: tylenol (09:47)
[2022-01-27] MEDS ORDERED: colace (09:47)
[2022-01-27] MEDS ORDERED: iohexol 300mg/ml 100ml inj. ONE (10:08)
[2022-01-27] MEDS ORDERED: levoFLOXACIN-Levaquin 500mg/D5 100 ML IV ONE (10:40)
== END 2022-01-27 13:05 | disposition home or self-care (01) ==
LOC: SSTAY O 08:41
PROVIDERS: ATTEND Radiology Diagnostic Radiology
DX: Z46.82 Encounter for fitting and adjustment of non-vascular catheter (principal); K83.1 Obstruction of bile duct; E78.5 Hyperlipidemia, unspecified; I10 Essential (primary) hypertension; E03.9 Hypothyroidism, unspecified; I48.91 Unspecified atrial fibrillation; F32.A Depression, unspecified; C85.10 Unspecified B-cell lymphoma, unspecified site; J44.9 Chronic obstructive pulmonary disease, unspecified; Z88.0 Allergy status to penicillin; Z88.5 Allergy status to narcotic agent; Z88.1 Allergy status to other antibiotic agents; Z79.890 Hormone replacement therapy; Z79.01 Long term (current) use of anticoagulants; Z79.899 Other long term (current) drug therapy; Z82.49 Family history of ischemic heart disease and other diseases of the circulatory system; Z95.828 Presence of other vascular implants and grafts; Z88.6 Allergy status to analgesic agent; Z98.890 Other specified postprocedural states
CPT/HCPCS: 36415; 47536; 85025; C1729; C1769; J7030; Q9967

== ENCOUNTER 2022-04-29 11:03 | Day surgery (SDC) | payer MEDICARE ==
[~2022-04-29] VITALS: Ht 157.5 cm; Wt 57.4 kg
[~2022-04-29 11:03] MED LIST changes: +colace; +tylenol
[2022-04-29] MEDS ORDERED: normal saline 1000ml 1,000 ML IV PRN (11:25)
[2022-04-29] MEDS ORDERED: clindamycin 600mg/D5W 50ml 50 ML IV ONE (11:25)
[2022-04-29] MEDS ORDERED: levoFLOXACIN-Levaquin 500mg/D5 100 ML IV ONE (11:25)
[2022-04-29 11:30] VITALS: BP 152/75
[2022-04-29] MEDS ORDERED: iohexol 300mg/ml 100ml inj. ONE (11:47)
[2022-04-29 12:36] VITALS: BP 118/88
[2022-04-29 12:53] VITALS: BP 143/87
[2022-04-29 13:06] VITALS: BP 110/55
== END 2022-04-29 14:05 ==
LOC: SSTAY O 11:03
PROVIDERS: ATTEND Radiology Vascular & Interventional Radiology
DX: Z46.59 Encounter for fitting and adjustment of other gastrointestinal appliance and device (principal); K83.1 Obstruction of bile duct; Z88.0 Allergy status to penicillin; Z88.8 Allergy status to other drugs, medicaments and biological substances; Z88.5 Allergy status to narcotic agent; Z79.899 Other long term (current) drug therapy; Z79.01 Long term (current) use of anticoagulants; Z82.49 Family history of ischemic heart disease and other diseases of the circulatory system
CPT/HCPCS: 47536; C1729; C1769; J7030; Q9967

== ENCOUNTER 2022-07-28 11:19 | Day surgery (SDC) | payer MEDICARE ==
[2022-07-28] VITALS (8 sets, daily range): BP systolic 126–150; BP diastolic 60–90
[~2022-07-28] VITALS: Ht 160 cm; Wt 59.3 kg
[~2022-07-28 11:19] MED LIST changes: -LORA10CA PO; -colace; -tylenol
[2022-07-28] MEDS ORDERED: normal saline 1000ml 1,000 ML IV PRN (12:00)
[2022-07-28] MEDS ORDERED: ALBU90AE INH (12:06)
[2022-07-28] MEDS ORDERED: BENZ1LOZ74 PO (12:06)
[2022-07-28] MEDS ORDERED: LORA10CA PO (12:06)
[2022-07-28] MEDS ORDERED: BISA10SU11 RC (12:06)
[2022-07-28] MEDS ORDERED: HALO1TAB PO (12:06)
[2022-07-28] MEDS ORDERED: ACET-75 PO (12:06)
[2022-07-28] MEDS ORDERED: HYDR2TAB7 PO (12:06)
[2022-07-28] MEDS ORDERED: DILT120T3 PO (12:06)
[2022-07-28] MEDS ORDERED: HYOS-26 SL (12:06)
[2022-07-28] MEDS ORDERED: GUAI600T45 PO (12:06)
[2022-07-28] MEDS ORDERED: iohexol 300 MG/1 ML 50ml polymer ONE (13:13)
[2022-07-28] MEDS ORDERED: CLINDAMYCIN 600mg IN NS 50ML 50 ML IV ONE ×2 (14:22→14:30)
== END 2022-07-28 16:15 | disposition home or self-care (01) ==
LOC: SSTAY O 11:19
PROVIDERS: ATTEND Radiology Vascular & Interventional Radiology
DX: T85.590A Other mechanical complication of bile duct prosthesis, initial encounter (principal); E78.5 Hyperlipidemia, unspecified; I10 Essential (primary) hypertension; E03.9 Hypothyroidism, unspecified; F32.A Depression, unspecified; I48.91 Unspecified atrial fibrillation; Z88.0 Allergy status to penicillin; Z88.8 Allergy status to other drugs, medicaments and biological substances; Z88.5 Allergy status to narcotic agent; Z88.1 Allergy status to other antibiotic agents; Z79.899 Other long term (current) drug therapy; Z82.49 Family history of ischemic heart disease and other diseases of the circulatory system; Y83.8 Other surgical procedures as the cause of abnormal reaction of the patient, or of later complication, without mention of misadventure at the time of the procedure; Y92.89 Other specified places as the place of occurrence of the external cause
CPT/HCPCS: 47536; C1729; C1769; J3490; J7030; Q9967

== ENCOUNTER 2022-11-06 11:02 | Day surgery (SDC) | payer MEDICARE ==
[~2022-11-06] VITALS: Ht 157.5 cm; Wt 55.7 kg
[~2022-11-06 11:02] MED LIST changes: +ACET-75 PO; +ALBU90AE INH; +BENZ1LOZ74 PO; +BISA10SU11 RC; +DILT120T3 PO; -DILT240C10 PO; +GUAI600T45 PO; +HALO1TAB PO; +HYDR2TAB7 PO; -HYDR4TAB45 PO; +HYOS-26 SL; +LORA10CA PO
[2022-11-06] MEDS ORDERED: normal saline 1000ml 1,000 ML IV PRN (11:45)
[2022-11-06] MEDS ORDERED: LEVO137T2 PO (11:48)
[2022-11-06] MEDS ORDERED: CHOL200042 (11:48)
[2022-11-06] MEDS ORDERED: DOXY-224 PO (11:48)
[2022-11-06] MEDS ORDERED: MUPI22OI30 (11:48)
[2022-11-06 12:00] VITALS: RESP 16; O2SAT 99
[2022-11-06 12:07] VITALS: BP 113/78; PULSE 99; RESP 16; TEMP 97.6; O2SAT 99
[2022-11-06] MEDS ORDERED: LIDOcaine 1% 30ml preserv. free vial ONE (12:39)
[2022-11-06] MEDS ORDERED: iohexol 300 MG/1 ML 50ml polymer ONE (12:39)
[2022-11-06 13:25] VITALS: BP 129/81; PULSE 80; RESP 16; O2SAT 100
[2022-11-06 13:30] VITALS: BP 95/52; PULSE 80; RESP 16; O2SAT 97
[2022-11-06 13:45] VITALS: BP 105/66; PULSE 73; RESP 16; O2SAT 99
== END 2022-11-06 14:40 | disposition home or self-care (01) ==
LOC: SSTAY O 11:02
PROVIDERS: ATTEND Radiology Vascular & Interventional Radiology
DX: T85.590A Other mechanical complication of bile duct prosthesis, initial encounter (principal); E78.5 Hyperlipidemia, unspecified; I10 Essential (primary) hypertension; E03.9 Hypothyroidism, unspecified; F32.A Depression, unspecified; I48.91 Unspecified atrial fibrillation; Z88.0 Allergy status to penicillin; Z88.8 Allergy status to other drugs, medicaments and biological substances; Z88.5 Allergy status to narcotic agent; Z79.899 Other long term (current) drug therapy; Z82.49 Family history of ischemic heart disease and other diseases of the circulatory system; Y83.8 Other surgical procedures as the cause of abnormal reaction of the patient, or of later complication, without mention of misadventure at the time of the procedure; Y92.89 Other specified places as the place of occurrence of the external cause
CPT/HCPCS: 47536; C1729; C1769; J3490; J7030; Q9967; A4421; A6258

== ENCOUNTER 2022-12-14 10:55 | Inpatient (IN) | payer MEDICARE ==
[2022-12-14] VITALS (7 sets, daily range): BP systolic 126–163; BP diastolic 61–93; PULSE 68–110; RESP 14–20; TEMP 97.1–98.4; O2SAT 96–98
[~2022-12-14] VITALS: Ht 160 cm; Wt 54.6 kg
[~2022-12-14 10:55] MED LIST changes: -ACET-75 PO; +APIX2.5T PO; -APIX5TAB3 PO; +ASPI-611 PO; -BISA10SU11 RC; +CARCD120C PO; +CHOL200042 PO; +CLOP-32 PO; -DILT120T3 PO; -HALO1TAB PO; -HYOS-26 SL; -LEVO125T PO; +LEVO137T2 PO; -LORA10CA PO; +ROSU20TA2 PO
[2022-12-14] MEDS ORDERED: HYDROmorphone inj. 0.5 MG/0.5 ML DISP.SYRIN IV PRN (13:30)
[2022-12-14] MEDS ORDERED: heparin 25,000 UNIT/250ml bag 250 ML IV PRN (13:30)
[2022-12-14] MEDS ORDERED: heparin 10,000 units/1 ML INJ IV ONE (13:30)
[2022-12-14] MEDS ORDERED: magnesium 2GM in 50ml NS 50 ML IV PRN (13:30)
[2022-12-14] MEDS ORDERED: HYDROmorphone/PF 0.2 MG/ML SYRINGE IV PRN (13:30)
[2022-12-14] MEDS ORDERED: ondansetron/PF 4mg/2ml inj IV PRN (13:30)
[2022-12-14] MEDS ORDERED: mag hydrox/Alum hydrox/simeth 30ml oral suspension PO PRN (13:30)
[2022-12-14] MEDS ORDERED: potassium Cl 40MEQ/1/2NS 520ml 520 ML IV PRN (13:30)
[2022-12-14] MEDS ORDERED: heparin 10,000 units/1 ML INJ IV PRN ×2 (13:30→13:40)
[2022-12-14] MEDS ORDERED: magnesium 4gm in 100ml NS 100 ML IV PRN (13:30)
[2022-12-14] MEDS ORDERED: HYDROmorphone 2mg tablet PO PRN (14:15)
[2022-12-14 14:40] LABS: APTT 35 SECONDS (22-32); INR 1.6 INR; PROTHROMBIN TIME 16.3 SECONDS (9.0-12.0)
[2022-12-14] MEDS: normal saline 1000ml 1,000 ML IV SCH (15:02)
[2022-12-14] MEDS ORDERED: midazolam 1 mg/ML 2ml injection ONE (15:10)
[2022-12-14] MEDS ORDERED: LIDOcaine 1% 30ml preserv. free vial ONE (15:10)
[2022-12-14] MEDS ORDERED: iohexol 350MG/ML 100ml bottle IV ONE (15:10)
[2022-12-14] MEDS ORDERED: fentaNYL/PF 50MCG/1 ML 2ML syringe ONE (15:10)
[2022-12-14] MEDS ORDERED: heparin 1,000unit/ml 10ml vial 0 ML ONE (15:10)
[2022-12-14] MEDS ORDERED: nitroGLYCERIN 500mcg/5mL D5W 5 ML IV ONE (15:16)
[2022-12-14] MEDS ORDERED: clopidogrel 300mg tablet ONE (16:39)
--- NOTE | 2022-12-14 18:30 | NUR ---
Problems reprioritized. Patient report given, questions answered & plan of care reviewed with Yessica Addendum: 12/14/22 at 1830 by Gilson Neil RN Amended: Links added.
--- NOTE | 2022-12-14 19:25 | NUR ---
MD called for pt uncontrolled pain. MD ordered Dilaudid IV PRN 1 mg Q4H, to start now. Order read back and placed per
[2022-12-14] MEDS: HYDROmorphone 1 mg/ml syringe IV PRN (19:38)
[2022-12-14] MEDS: K and/or MAG REPLACEMENT MC SCH (20:00)
[2022-12-14] MEDS: docusate sod 100mg capsule PO SCH (20:00)
[2022-12-15] VITALS (9 sets, daily range): BP systolic 115–151; BP diastolic 64–93; PULSE 62–101; RESP 14–22; TEMP 96.8–97.6; O2SAT 94–100
[2022-12-15] MEDS: HYDROmorphone 1 mg/ml syringe IV PRN (00:26)
[2022-12-15] MEDS: normal saline 1000ml 1,000 ML IV SCH ×2 (04:27→21:04)
--- NOTE | 2022-12-15 06:33 | NUR ---
Problems reprioritized. Patient report given, questions answered & plan of care reviewed with Murray RN and Amparo RN.
--- NOTE | 2022-12-15 06:46 | NUR ---
Patient in room PCU 3012. I have received report from Yessica VALDIVIA and had the opportunity to ask questions and assume patient care.
[2022-12-15] MEDS ORDERED: HYDROmorphone 2mg tablet PO PRN (07:30)
[2022-12-15 07:38] LABS: BASOPHILS % (AUTO) 0.5 % (0-1); EOSINOPHILS % (AUTO) 0.1 % (0-6); HEMATOCRIT 36.1 % (35.0-45.0); HEMOGLOBIN 11.3 g/dl (12.0-16.0); LYMPHOCYTES # (AUTO) 0.9 X10'3 (1.1-4.8); MEAN CORPUSCULAR HEMOGLOBIN 28.5 PG (27.0-31.0); MEAN CORPUSCULAR HGB CONC 31.4 g/dL (33.0-36.5); MEAN CORPUSCULAR VOLUME 90.7 FL (78-98); MEAN PLATELET VOLUME 9.4 FL (7.4-10.4); MONOCYTES # (AUTO) 0.8 X10'3 (0-0.9); NEUTROPHILS # (AUTO) 7.7 X10'3 (1.8-7.7); NEUTROPHILS % (AUTO) 81.4 % (42-75); PLATELET COUNT 135 X10'3 (140-440); RED BLOOD COUNT 3.98 X10'6 (4.20-5.60); RED CELL DISTRIBUTION WIDTH 17.5 % (11.5-14.5); WHITE BLOOD COUNT 9.4 X10'3 (4.5-11.0)
[2022-12-15 07:52] LABS: ALANINE AMINOTRANSFERASE 38 U/L (12-78); ALBUMIN 3.1 G/DL (3.4-5.0); ALBUMIN/GLOBULIN RATIO 1.1 (1.1-1.5); ALKALINE PHOSPHATASE 492 IU/L (46-116); ANION GAP 15 (8-16); ASPARTATE AMINO TRANSFERASE 103 U/L (10-37); BILIRUBIN,TOTAL 2.2 MG/DL (0.1-1.0); BLOOD UREA NITROGEN 35 MG/DL (7-18); BUN/CREATININE RATIO 31.3 (10.0-20.0); CHLORIDE 102 MMOL/L (99-107); CREATININE 1.12 MG/DL (0.40-0.90); GLUCOSE 133 MG/DL (70-104); MAGNESIUM 2.3 MG/DL (1.5-2.4); POTASSIUM 3.2 MMOL/L (3.5-5.1); SODIUM 140 MMOL/L (135-145); TOTAL CARBON DIOXIDE 23.4 MMOL/L (24-32); eCRCL 29 ML/MIN; eGFR 46 ML/MIN
[2022-12-15] MEDS ORDERED: guaiFENesin ER 600mg tablet PO PRN (07:55)
[2022-12-15] MEDS ORDERED: HALLS - SOOTHE MENTHOL 1.8 MG cough drop LOZENGE MM PRN (07:55)
[2022-12-15] MEDS ORDERED: clopidogrel 75mg tablet PO SCH (08:00)
[2022-12-15] MEDS: docusate sod 100mg capsule PO SCH ×4 (08:00→20:00)
[2022-12-15] MEDS: potassium chloride 10mEq ER tablet PO SCH (08:25)
[2022-12-15] MEDS: diltiazem CD 120mg capsule (once-daily) PO SCH (08:25)
[2022-12-15] MEDS: apixaban 2.5mg tablet PO SCH ×2 (08:25→20:44)
[2022-12-15] MEDS: sertraline 50mg tablet PO SCH (08:27)
[2022-12-15] MEDS: multivitamins, therapeutics tablet PO SCH (08:27)
[2022-12-15] MEDS: aspirin 81mg, enteric-coated 1 TAB TABLET.DR PO SCH (08:27)
[2022-12-15] MEDS: pantoprazole 40mg Tablet.DR PO SCH (08:27)
[2022-12-15] MEDS: sennosides/docusate sodium tablet PO SCH (08:27)
[2022-12-15] MEDS: furosemide 40mg tablet PO SCH ×2 (08:27→20:44)
[2022-12-15] MEDS: clopidogrel 75mg tablet PO SCH (08:28)
[2022-12-15] MEDS: potassium Cl 20 mEq SR tablet PO PRN ×3 (08:35→20:43)
[2022-12-15] MEDS: levoTHYROXINE 25mcg tablet PO SCH (08:36)
[2022-12-15] MEDS: levoTHYROXINE 112mcg tablet PO SCH (08:36)
[2022-12-15] MEDS: K and/or MAG REPLACEMENT MC SCH ×2 (08:43→20:00)
--- NOTE | 2022-12-15 18:15 | NUR ---
Problems reprioritized. Patient report given, questions answered & plan of care reviewed with Yessica VALDIVIA.
[2022-12-15] MEDS ORDERED: ROSUVASTATIN CALCIUM 5 MG TABLET PO SCH (21:00)
[2022-12-16 02:00] VITALS: BP 121/74; PULSE 97; RESP 19; TEMP 99.2; O2SAT 100
[2022-12-16] MEDS: normal saline 1000ml 1,000 ML IV SCH (03:00)
[2022-12-16 06:00] VITALS: PULSE 66; RESP 20; TEMP 98.9; O2SAT 99
--- NOTE | 2022-12-16 06:26 | NUR ---
Problems reprioritized. Patient report given, questions answered & plan of care reviewed with Alise HUMPHREY.
--- NOTE | 2022-12-16 06:42 | NUR ---
I have received report from SHEA Juan and had the opportunity to ask questions and assume patient care. No distress at this time.
[2022-12-16 06:52] LABS: BASOPHILS % (AUTO) 0.3 % (0-1); EOSINOPHILS % (AUTO) 0.3 % (0-6); HEMATOCRIT 34.5 % (35.0-45.0); HEMOGLOBIN 11.4 g/dl (12.0-16.0); LYMPHOCYTES # (AUTO) 1.2 X10'3 (1.1-4.8); LYMPHOCYTES % (AUTO) 13.1 % (21-51); MEAN CORPUSCULAR HEMOGLOBIN 28.7 PG (27.0-31.0); MEAN CORPUSCULAR VOLUME 86.9 FL (78-98); MEAN PLATELET VOLUME 9.3 FL (7.4-10.4); MONOCYTES # (AUTO) 0.9 X10'3 (0-0.9); MONOCYTES % (AUTO) 9.6 % (2-12); NEUTROPHILS # (AUTO) 7.3 X10'3 (1.8-7.7); NEUTROPHILS % (AUTO) 76.7 % (42-75); PLATELET COUNT 167 X10'3 (140-440); RED BLOOD COUNT 3.97 X10'6 (4.20-5.60); WHITE BLOOD COUNT 9.5 X10'3 (4.5-11.0)
[2022-12-16 07:08] LABS: ALANINE AMINOTRANSFERASE 39 U/L (12-78); ALBUMIN 2.8 G/DL (3.4-5.0); ALBUMIN/GLOBULIN RATIO 1.1 (1.1-1.5); ALKALINE PHOSPHATASE 444 IU/L (46-116); ANION GAP 6 (8-16); ASPARTATE AMINO TRANSFERASE 64 U/L (10-37); BILIRUBIN,TOTAL 2.1 MG/DL (0.1-1.0); BLOOD UREA NITROGEN 22 MG/DL (7-18); BUN/CREATININE RATIO 23.2 (10.0-20.0); CALCIUM 7.8 MG/DL (8.5-10.1); CHLORIDE 106 MMOL/L (99-107); CREATININE 0.95 MG/DL (0.40-0.90); GLUCOSE 133 MG/DL (70-104); MAGNESIUM 2.2 MG/DL (1.5-2.4); POTASSIUM 4.1 MMOL/L (3.5-5.1); SODIUM 138 MMOL/L (135-145); TOTAL PROTEIN 5.4 G/DL (6.4-8.2); eCRCL 34 ML/MIN; eGFR 56 ML/MIN
[2022-12-16 08:00] VITALS: RESP 16; O2SAT 99
[2022-12-16] MEDS: docusate sod 100mg capsule PO SCH ×2 (08:00→08:51)
[2022-12-16] MEDS: K and/or MAG REPLACEMENT MC SCH (08:00)
[2022-12-16] MEDS: sennosides/docusate sodium tablet PO SCH (08:50)
[2022-12-16] MEDS: clopidogrel 75mg tablet PO SCH (08:50)
[2022-12-16] MEDS: diltiazem CD 120mg capsule (once-daily) PO SCH (08:50)
[2022-12-16] MEDS: furosemide 40mg tablet PO SCH (08:50)
[2022-12-16] MEDS: multivitamins, therapeutics tablet PO SCH (08:50)
[2022-12-16] MEDS: apixaban 2.5mg tablet PO SCH (08:50)
[2022-12-16] MEDS: aspirin 81mg, enteric-coated 1 TAB TABLET.DR PO SCH (08:51)
[2022-12-16] MEDS: potassium chloride 10mEq ER tablet PO SCH (08:51)
[2022-12-16] MEDS: sertraline 50mg tablet PO SCH (08:51)
[2022-12-16] MEDS: pantoprazole 40mg Tablet.DR PO SCH (08:51)
[2022-12-16] MEDS: levoTHYROXINE 112mcg tablet PO SCH (09:00)
[2022-12-16] MEDS: levoTHYROXINE 25mcg tablet PO SCH (09:00)
[2022-12-16 10:00] VITALS: BP 118/62; PULSE 73; RESP 12; TEMP 97.7; O2SAT 99
--- NOTE | 2022-12-16 12:26 | NUR ---
Patient has discharge orders; however, I called the daughter and LM, awaiting for call back.
[2022-12-16 15:00] VITALS: BP 110/62; PULSE 85; RESP 17; TEMP 97.9; O2SAT 100
--- NOTE | 2022-12-16 16:52 | NUR ---
DAUGHTER STATES SHE PICKED UP RX PLAVIX AND ELIQUIS AT [facility]. i CAONFIRMED WITH JUAN PHARM EMPLOYEE AT [facility] IN [place] THAT 3 MONTH SUPPLY OF ELIQUIS 11/14 AND PICKED UP PLAVIX 12/09.
--- NOTE | 2022-12-16 20:19 | NUR ---
Pt given discharge education and education about femoral site care, chest pain, medications, etc. Pt given print out discharge instructions. Pt and daughter state understanding. Discharge paperwork signed. Pt will take evening medications at [facility] where she is going. IVs removed, wound care discharge photos taken, tele monitor removed. Pt discharged with daughter in private vehicle via wheel chair. All belongings sent with pt. Pt discharged from hospital at 1940.
== END 2022-12-16 19:40 | disposition home health service (06) | DRG 321 ==
LOC: PCU 3S 10:55
PROVIDERS: ADMIT Family Medicine; ATTEND Family Medicine
PROC: 4A023N7 Measurement of Cardiac Sampling and Pressure, Left Heart, Percutaneous Approach (ICD-10-PCS; principal; 2022-12-16)
PROC: 027034Z Dilation of Coronary Artery, One Artery with Drug-eluting Intraluminal Device, Percutaneous Approach (ICD-10-PCS; 2022-12-16)
PROC: 02703ZZ Dilation of Coronary Artery, One Artery, Percutaneous Approach (ICD-10-PCS; 2022-12-16)
PROC: B2111ZZ Fluoroscopy of Multiple Coronary Arteries using Low Osmolar Contrast (ICD-10-PCS; 2022-12-16)
PROC: B2151ZZ Fluoroscopy of Left Heart using Low Osmolar Contrast (ICD-10-PCS; 2022-12-16)
PROC: 027034Z Dilation of Coronary Artery, One Artery with Drug-eluting Intraluminal Device, Percutaneous Approach (ICD-10-PCS; 2022-12-16)
DX: I21.4 Non-ST elevation (NSTEMI) myocardial infarction (principal); N17.0 Acute kidney failure with tubular necrosis; I13.0 Hypertensive heart and chronic kidney disease with heart failure and stage 1 through stage 4 chronic kidney disease, or unspecified chronic kidney disease; I48.20 Chronic atrial fibrillation, unspecified; I42.0 Dilated cardiomyopathy; J96.10 Chronic respiratory failure, unspecified whether with hypoxia or hypercapnia; Z66 Do not resuscitate; I35.0 Nonrheumatic aortic (valve) stenosis; E03.9 Hypothyroidism, unspecified; E78.5 Hyperlipidemia, unspecified; I25.10 Atherosclerotic heart disease of native coronary artery without angina pectoris; I27.29 Other secondary pulmonary hypertension; I50.9 Heart failure, unspecified; N18.9 Chronic kidney disease, unspecified; J44.9 Chronic obstructive pulmonary disease, unspecified; Z63.4 Disappearance and death of family member; Z79.01 Long term (current) use of anticoagulants; Z79.02 Long term (current) use of antithrombotics/antiplatelets; Z79.899 Other long term (current) drug therapy; Z82.49 Family history of ischemic heart disease and other diseases of the circulatory system; Z85.828 Personal history of other malignant neoplasm of skin; Z88.0 Allergy status to penicillin; Z88.1 Allergy status to other antibiotic agents; Z88.6 Allergy status to analgesic agent; Z90.49 Acquired absence of other specified parts of digestive tract; Z95.5 Presence of coronary angioplasty implant and graft
CPT/HCPCS: 92921; 93459; 99285; C9600; 36415; 80053; 83735; 84443; 85025; 85347; 85610; 85730; 87081; 97161; 97530; 97535; 99152; 99153; A4615; A6258; A6449; C1725; C1751; C1760; C1769; C1874; G0378; J1170; J1644; J2250; J3010; J3490; J7030; Q9967

== ENCOUNTER 2022-12-19 19:45 | Inpatient (IN) | payer MEDICARE ==
[~2022-12-19] VITALS: Ht 157.5 cm; Wt 57.3 kg
[2022-12-19 20:28] LABS: HEMATOCRIT 32.7 % (35.0-45.0); HEMOGLOBIN 10.6 g/dl (12.0-16.0); MEAN CORPUSCULAR HEMOGLOBIN 28.2 PG (27.0-31.0); MEAN CORPUSCULAR HGB CONC 32.4 g/dL (33.0-36.5); MEAN CORPUSCULAR VOLUME 86.8 FL (78-98); PLATELET COUNT 188 X10'3 (140-440); RED BLOOD COUNT 3.77 X10'6 (4.20-5.60); WHITE BLOOD COUNT 7.5 X10'3 (4.5-11.0)
[2022-12-19 20:29] LABS: BASOPHILS # (AUTO) 0.1 X10'3 (0-0.2); BASOPHILS % (AUTO) 0.7 % (0-1); EOSINOPHILS # (AUTO) 0.1 X10'3 (0-0.9); EOSINOPHILS % (AUTO) 1.1 % (0-6); LYMPHOCYTES # (AUTO) 1.7 X10'3 (1.1-4.8); MEAN PLATELET VOLUME 8.9 FL (7.4-10.4); MONOCYTES # (AUTO) 0.7 X10'3 (0-0.9); MONOCYTES % (AUTO) 9.3 % (2-12); NEUTROPHILS % (AUTO) 65.9 % (42-75)
[2022-12-19 20:33] LABS: INR 1.7 INR; PROTHROMBIN TIME 17.6 SECONDS (9.0-12.0)
[2022-12-19 20:40] LABS: ALANINE AMINOTRANSFERASE 38 U/L (12-78); ALBUMIN 3.6 G/DL (3.4-5.0); ALBUMIN/GLOBULIN RATIO 1.3 (1.1-1.5); ALKALINE PHOSPHATASE 609 IU/L (46-116); ANION GAP 9 (8-16); ASPARTATE AMINO TRANSFERASE 35 U/L (10-37); BLOOD UREA NITROGEN 27 MG/DL (7-18); BUN/CREATININE RATIO 20.9 (10.0-20.0); CHLORIDE 100 MMOL/L (99-107); CREATININE 1.29 MG/DL (0.40-0.90); GLUCOSE 163 MG/DL (70-104); POTASSIUM 3.7 MMOL/L (3.5-5.1); SODIUM 135 MMOL/L (135-145); TOTAL CARBON DIOXIDE 26.3 MMOL/L (24-32); TOTAL PROTEIN 6.4 G/DL (6.4-8.2); eCRCL 24 ML/MIN; eGFR 39 ML/MIN
[2022-12-19 20:46] LABS: PRO BRAIN NATRIURETIC PEPTIDE 9868 PG/ML (0-450)
[2022-12-19] MEDS ORDERED: furosemide 10 MG/1 ML 10ml inj IV ONE (21:25)
[2022-12-19] MEDS ORDERED: potassium Cl 20 mEq SR tablet PO PRN (21:55)
[2022-12-19] MEDS ORDERED: magnesium hydroxide 30ml (MOM) UD suspension PO PRN (21:55)
[2022-12-19] MEDS ORDERED: potassium Cl 40MEQ/1/2NS 520ml 520 ML IV PRN (21:55)
[2022-12-19] MEDS ORDERED: magnesium 2GM in 50ml NS 50 ML IV PRN (21:55)
[2022-12-19] MEDS ORDERED: magnesium Cl slow-release 64mg tablet PO PRN (21:55)
[2022-12-19] MEDS ORDERED: magnesium 4gm in 100ml NS 100 ML IV PRN (21:55)
[2022-12-19] MEDS ORDERED: mag hydrox/Alum hydrox/simeth 30ml oral suspension PO PRN (21:55)
[2022-12-19] MEDS ORDERED: ondansetron/PF 4mg/2ml inj IV PRN (21:55)
[2022-12-19] MEDS ORDERED: ipratropium/albuterol 3ml nebule NEB PRN (21:55)
[2022-12-19 22:21] VITALS: PULSE 76; RESP 12; O2SAT 97
[2022-12-19] MEDS ORDERED: APIX5TAB3 PO (22:26)
--- NOTE | 2022-12-19 23:59 | NUR ---
Paged Dr. Chapman. "Karoline from the ER, [facility] room 3 in the ER, need order for Eliquis for tonight and PO Dilaudid 2mg per home med list"
[2022-12-20] VITALS (8 sets, daily range): BP systolic 101–118; BP diastolic 56–71; PULSE 77–104; RESP 13–18; TEMP 97.8; O2SAT 98–99
[2022-12-20] MEDS ORDERED: non-formulary drug (Albuterol Sulfate (Proair Respiclick) 2 PUFFS) INH PRN (00:55)
[2022-12-20] MEDS ORDERED: BENZOCAINE PO PRN (00:55)
[2022-12-20] MEDS ORDERED: guaiFENesin ER 600mg tablet PO PRN (00:55)
[2022-12-20] MEDS ORDERED: MENTHOL PO PRN (00:55)
[2022-12-20] MEDS ORDERED: albuterol 2.5 MG/3 ML nebule NEB PRN (01:25)
[2022-12-20] MEDS ORDERED: HALLS - SOOTHE MENTHOL 1.8 MG cough drop LOZENGE MM PRN (01:27)
[2022-12-20] MEDS: levoTHYROXINE 112mcg tablet PO SCH (07:08)
[2022-12-20] MEDS: levoTHYROXINE 25mcg tablet PO SCH (07:09)
[2022-12-20] MEDS: sennosides/docusate sodium tablet PO SCH (08:00)
[2022-12-20] MEDS ORDERED: furosemide 10 MG/1 ML 10ml inj IV SCH (08:00)
[2022-12-20] MEDS: docusate sod 100mg capsule PO SCH ×4 (08:00→23:07)
[2022-12-20] MEDS ORDERED: furosemide 40mg tablet PO SCH (08:00)
[2022-12-20] MEDS ORDERED: apixaban 2.5mg tablet PO SCH ×2 (08:00)
[2022-12-20] MEDS ORDERED: enoxaparin 40mg/0.4ml syringe SUBCUT SCH (08:00)
[2022-12-20 09:03] LABS: BASOPHILS % (AUTO) 0.6 % (0-1); EOSINOPHILS # (AUTO) 0.1 X10'3 (0-0.9); LYMPHOCYTES # (AUTO) 1.4 X10'3 (1.1-4.8); LYMPHOCYTES % (AUTO) 22.4 % (21-51); MEAN CORPUSCULAR HEMOGLOBIN 27.9 PG (27.0-31.0); MEAN CORPUSCULAR HGB CONC 32.4 g/dL (33.0-36.5); MEAN CORPUSCULAR VOLUME 86.2 FL (78-98); MEAN PLATELET VOLUME 8.5 FL (7.4-10.4); MONOCYTES # (AUTO) 0.5 X10'3 (0-0.9); MONOCYTES % (AUTO) 7.2 % (2-12); NEUTROPHILS # (AUTO) 4.4 X10'3 (1.8-7.7); NEUTROPHILS % (AUTO) 68.8 % (42-75); PLATELET COUNT 169 X10'3 (140-440); RED BLOOD COUNT 3.94 X10'6 (4.20-5.60); RED CELL DISTRIBUTION WIDTH 16.2 % (11.5-14.5); WHITE BLOOD COUNT 6.4 X10'3 (4.5-11.0)
[2022-12-20 09:30] LABS: ALANINE AMINOTRANSFERASE 34 U/L (12-78); ALBUMIN 3.3 G/DL (3.4-5.0); ALBUMIN/GLOBULIN RATIO 1.1 (1.1-1.5); ALKALINE PHOSPHATASE 632 IU/L (46-116); ANION GAP 7 (8-16); ASPARTATE AMINO TRANSFERASE 30 U/L (10-37); BILIRUBIN,TOTAL 2.2 MG/DL (0.1-1.0); BLOOD UREA NITROGEN 22 MG/DL (7-18); CALCIUM 8.5 MG/DL (8.5-10.1); CHLORIDE 100 MMOL/L (99-107); CREATININE 1.05 MG/DL (0.40-0.90); GLUCOSE 112 MG/DL (70-104); MAGNESIUM 2.3 MG/DL (1.5-2.4); POTASSIUM 3.4 MMOL/L (3.5-5.1); PRO BRAIN NATRIURETIC PEPTIDE 8446 PG/ML (0-450); SODIUM 139 MMOL/L (135-145); TOTAL CARBON DIOXIDE 31.6 MMOL/L (24-32); TOTAL PROTEIN 6.2 G/DL (6.4-8.2); eCRCL 29 ML/MIN; eGFR 49 ML/MIN
--- NOTE | 2022-12-20 09:35 | NUR ---
PER DR NASH RN MAY CXL PO LASIX AND CONT IV LASIX 40MG BID.
--- NOTE | 2022-12-20 09:37 | NUR ---
CORRECT TO LAST NOTE. PER DR NASH RN MAY CONT 40 MG LASIX IV DAILY
[2022-12-20] MEDS: K and/or MAG REPLACEMENT MC SCH ×2 (09:44→20:00)
[2022-12-20 09:46] LABS: % IRON SATURATION 8 % (11-46); IRON 31 UG/DL (49-151); TOTAL IRON BINDING CAPACITY 371 UG/DL (259-388)
[2022-12-20] MEDS: aspirin 81mg, enteric-coated 1 TAB TABLET.DR PO SCH (10:06)
[2022-12-20] MEDS: cholecalciferol (vitamin D3) 1,000 unit (25mcg) tablet PO SCH (10:06)
[2022-12-20] MEDS: multivitamins, therapeutics tablet PO SCH (10:07)
[2022-12-20] MEDS: clopidogrel 75mg tablet PO SCH (10:07)
[2022-12-20] MEDS: sertraline 50mg tablet PO SCH (10:08)
[2022-12-20] MEDS: pantoprazole 40mg Tablet.DR PO SCH (10:08)
[2022-12-20] MEDS: diltiazem CD 120mg capsule (once-daily) PO SCH (10:25)
[2022-12-20] MEDS: potassium chloride 10mEq ER tablet PO SCH (10:25)
[2022-12-20 10:27] LABS: FERRITIN 61 NG/ML (8-252)
--- NOTE | 2022-12-20 13:42 | NUR ---
RN PAGED DR HARVEY TO CONFIRM IF PT NEEDS TOTAL OF 80 MG IV LASIX DAILY. PER DR HARVEY PT TO RECEIVE 40 MG LASIX IV BID AND LEAVE ORD IS.
[2022-12-20] MEDS: DOBUTamine-DoBUTrex 500mg/D5W 250 ML IV SCH (14:28)
--- NOTE | 2022-12-20 14:34 | NUR ---
RN CONFIRMED WITH DR GARCIA THAT DOBUTAMINE DRIP SHOULD BE STARTED AT 3 MCG/KG/MIN. DOBUTAMINE DRIP STARTED.
[2022-12-20] MEDS: potassium Cl 20 mEq SR tablet PO PRN ×2 (17:10→23:07)
--- NOTE | 2022-12-20 17:55 | NUR ---
RN CALLED DR HARVEY AND CONFIRMED THAT DOBUTAMINE DRIP IS NOT TITRATABLE AND TO KEEP IT CONTINUOUS AT 3MCG/KG/MIN. RN NOTIFIED PHARMACY.
[2022-12-20] MEDS ORDERED: enoxaparin 50mg/0.5ml (from 3ml vial) syringe SUBCUT ONE (20:00)
[2022-12-20] MEDS: furosemide 40mg/4ml inj IV SCH (20:00)
--- NOTE | 2022-12-20 21:16 | NUR ---
ATTEMPT TO CALL REPORT, NURSE UNAVAILABLE. WITH PATIENT
--- NOTE | 2022-12-20 22:01 | NUR ---
CALLED DR LICEA, INFORMED PT CODE STATUS IS INCORRECT IN COMPUTER, AND NEEDS TO BE CHANGED TO DNR COMFORT CARE. SHE CONFIRMED SHE WOULD DO SO
--- NOTE | 2022-12-20 23:01 | NUR ---
Page Sent PAGER ID: [phone] MESSAGE: PT IN RM 3012C [facility]EX MARV, HAS NOSE BLEED . SHOULD I STILL GIVE LOVENOX. ALAN .U [id number]. okayed to hold Lovenox
--- NOTE | 2022-12-20 23:10 | NUR ---
pt was admitted into the unit alert and oriented.Pt came in with a bag of dobutamine drip and stable vital signs. It was noticed that pt had moderate amount of dried blood on both nostrils indicating that pt had nose bleed before coming to the unit.MD was notified and Lovenox held per MD's order.Pt denies pain,only complained of weakness. Will continue to monitor.
[2022-12-20] MEDS: ROSUVASTATIN CALCIUM 5 MG TABLET PO SCH (23:26)
[2022-12-21] VITALS (28 sets, daily range): BP systolic 99–135; BP diastolic 53–73; PULSE 75–108; RESP 12–19; TEMP 96.5–98.2; O2SAT 98–99
[2022-12-21 06:16] LABS: BASOPHILS % (AUTO) 0.5 % (0-1); EOSINOPHILS % (AUTO) 0.6 % (0-6); HEMATOCRIT 33.2 % (35.0-45.0); HEMOGLOBIN 10.9 g/dl (12.0-16.0); LYMPHOCYTES % (AUTO) 19.1 % (21-51); MEAN CORPUSCULAR HEMOGLOBIN 28.4 PG (27.0-31.0); MEAN CORPUSCULAR HGB CONC 32.9 g/dL (33.0-36.5); MEAN CORPUSCULAR VOLUME 86.3 FL (78-98); MEAN PLATELET VOLUME 8.6 FL (7.4-10.4); MONOCYTES # (AUTO) 0.5 X10'3 (0-0.9); MONOCYTES % (AUTO) 9.4 % (2-12); NEUTROPHILS # (AUTO) 3.7 X10'3 (1.8-7.7); NEUTROPHILS % (AUTO) 70.4 % (42-75); PLATELET COUNT 152 X10'3 (140-440); RED BLOOD COUNT 3.85 X10'6 (4.20-5.60); RED CELL DISTRIBUTION WIDTH 16.5 % (11.5-14.5); WHITE BLOOD COUNT 5.2 X10'3 (4.5-11.0)
--- NOTE | 2022-12-21 06:38 | NUR ---
Patient in room U 3012. I have received report from Jimena and had the opportunity to ask questions and assume patient care. Addendum: 12/21/22 at 0638 by Gilson Neil RN Amended: Links added.
[2022-12-21 06:39] LABS: ALANINE AMINOTRANSFERASE 27 U/L (12-78); ALBUMIN 2.8 G/DL (3.4-5.0); ALKALINE PHOSPHATASE 561 IU/L (46-116); ANION GAP 6 (8-16); ASPARTATE AMINO TRANSFERASE 25 U/L (10-37); BLOOD UREA NITROGEN 20 MG/DL (7-18); CALCIUM 8.8 MG/DL (8.5-10.1); CHLORIDE 101 MMOL/L (99-107); CREATININE 1.11 MG/DL (0.40-0.90); GLUCOSE 117 MG/DL (70-104); MAGNESIUM 2.4 MG/DL (1.5-2.4); POTASSIUM 3.6 MMOL/L (3.5-5.1); PRO BRAIN NATRIURETIC PEPTIDE 7794 PG/ML (0-450); SODIUM 139 MMOL/L (135-145); TOTAL CARBON DIOXIDE 32.1 MMOL/L (24-32); TOTAL PROTEIN 5.5 G/DL (6.4-8.2); eCRCL 28 ML/MIN; eGFR 46 ML/MIN
--- NOTE | 2022-12-21 06:50 | NUR ---
Problems reprioritized. Patient report given, questions answered & plan of care reviewed with Gilson
[2022-12-21] MEDS: furosemide 40mg/4ml inj IV SCH ×2 (07:19→21:27)
[2022-12-21] MEDS: levoTHYROXINE 25mcg tablet PO SCH (07:19)
[2022-12-21] MEDS: potassium chloride 10mEq ER tablet PO SCH (07:19)
[2022-12-21] MEDS: multivitamins, therapeutics tablet PO SCH (07:19)
[2022-12-21] MEDS: sertraline 50mg tablet PO SCH (07:19)
[2022-12-21] MEDS: cholecalciferol (vitamin D3) 1,000 unit (25mcg) tablet PO SCH (07:19)
[2022-12-21] MEDS: diltiazem CD 120mg capsule (once-daily) PO SCH (07:19)
[2022-12-21] MEDS: sennosides/docusate sodium tablet PO SCH (07:20)
[2022-12-21] MEDS: levoTHYROXINE 112mcg tablet PO SCH (07:20)
[2022-12-21] MEDS: docusate sod 100mg capsule PO SCH ×3 (07:20→21:26)
[2022-12-21] MEDS: clopidogrel 75mg tablet PO SCH (07:20)
[2022-12-21] MEDS: aspirin 81mg, enteric-coated 1 TAB TABLET.DR PO SCH (07:20)
[2022-12-21] MEDS: pantoprazole 40mg Tablet.DR PO SCH (07:20)
[2022-12-21] MEDS: K and/or MAG REPLACEMENT MC SCH ×2 (07:21→20:00)
--- NOTE | 2022-12-21 11:23 | NUR ---
Malnutrition consult: PX for CHF exacerbation and chronic respirator failure per EMR. Per RN malnutrition screen pt reports 34 or more pounds lost and a decreased in PO intake/appetite. Per EMR pt was hospitalized in 2018 in critical condition and after was on hospice for 2 years. Pt recently discontinued from hospice in August 2022. Scaled wt this admit of 54.55kg (120 pounds) and wt hx in EMR of 56.4kg (124 pounds) on 12/10 indicating possible wt loss of ~4 pounds in 11 days though noted different scaled methods used and pt on lasix due to CHF thus anticipate wt fluctuation. Per EMR pt is hard of hearing and does not have hearing aids with her. Pt seen at bedside this morning. Pt appeared sleepy and only nodded when asked questions thus unable to obtained full wt or intake history. On prior last two admits pt's PO intake was ~ 30-31% not meeting estimated needs thus anticipate pt had predicted suboptimal intake after discharge from hospital. Pt physically had visible mild temporal wasting. Pt meets a minimum of two malnutrition criteria at this time; MD notified. Pt is currently on a heart healthy diet with average PO intake 25% x 1. Will monitor PO intake and make recommendations as appropriate. LBM on 12/20 receiving routine bowel care per EMr. Will continue to monitor. Recommendations: 1.Continue heart healthy diet 2.Monitor PO intake trend and need for ONS 3.Routine bowel care 4.Weekly scaled wts Addendum: 12/21/22 at [address] Amended: Links added.
[2022-12-21] MEDS: ferrous sulfate 300mg/5ml UD oral liquid PO SCH (17:46)
[2022-12-21] MEDS: lactose-reduced food (Ensure Enlive) - 237ml bottle PO SCH (17:46)
--- NOTE | 2022-12-21 18:12 | NUR ---
Problems reprioritized. Patient report given, questions answered & plan of care reviewed with Jimena. Addendum: 12/21/22 at 1816 by Gilson Neil RN Amended: Links added.
[2022-12-21] MEDS: ROSUVASTATIN CALCIUM 5 MG TABLET PO SCH (21:26)
[2022-12-22] VITALS (25 sets, daily range): BP systolic 82–222; BP diastolic 48–85; PULSE 51–109; RESP 12–21; TEMP 97–98.4; O2SAT 95–99
--- NOTE | 2022-12-22 06:10 | NUR ---
Patient in room U 3012. I have received report from Jimena and had the opportunity to ask questions and assume patient care. Addendum: 12/22/22 at 0611 by Gilson Neil RN Amended: Links added.
--- NOTE | 2022-12-22 06:16 | NUR ---
Problems reprioritized. Patient report given, questions answered & plan of care reviewed with Gilson.
[2022-12-22 06:35] LABS: BASOPHILS % (AUTO) 0.5 % (0-1); EOSINOPHILS % (AUTO) 0.5 % (0-6); HEMATOCRIT 34.4 % (35.0-45.0); HEMOGLOBIN 11.3 g/dl (12.0-16.0); LYMPHOCYTES # (AUTO) 1.1 X10'3 (1.1-4.8); LYMPHOCYTES % (AUTO) 13.2 % (21-51); MEAN CORPUSCULAR HEMOGLOBIN 28.5 PG (27.0-31.0); MEAN CORPUSCULAR HGB CONC 32.9 g/dL (33.0-36.5); MEAN CORPUSCULAR VOLUME 86.8 FL (78-98); MEAN PLATELET VOLUME 8.7 FL (7.4-10.4); MONOCYTES # (AUTO) 0.7 X10'3 (0-0.9); MONOCYTES % (AUTO) 8.5 % (2-12); NEUTROPHILS # (AUTO) 6.2 X10'3 (1.8-7.7); NEUTROPHILS % (AUTO) 77.3 % (42-75); PLATELET COUNT 173 X10'3 (140-440); RED BLOOD COUNT 3.97 X10'6 (4.20-5.60); RED CELL DISTRIBUTION WIDTH 17.2 % (11.5-14.5)
[2022-12-22 07:16] LABS: ALANINE AMINOTRANSFERASE 25 U/L (12-78); ALBUMIN 2.9 G/DL (3.4-5.0); ALKALINE PHOSPHATASE 589 IU/L (46-116); ANION GAP 8 (8-16); ASPARTATE AMINO TRANSFERASE 32 U/L (10-37); BILIRUBIN,TOTAL 1.7 MG/DL (0.1-1.0); BLOOD UREA NITROGEN 27 MG/DL (7-18); BUN/CREATININE RATIO 21.3 (10.0-20.0); CALCIUM 9.2 MG/DL (8.5-10.1); CHLORIDE 99 MMOL/L (99-107); CREATININE 1.27 MG/DL (0.40-0.90); GLUCOSE 124 MG/DL (70-104); MAGNESIUM 2.8 MG/DL (1.5-2.4); PRO BRAIN NATRIURETIC PEPTIDE 6633 PG/ML (0-450); SODIUM 135 MMOL/L (135-145); TOTAL CARBON DIOXIDE 27.9 MMOL/L (24-32); TOTAL PROTEIN 5.8 G/DL (6.4-8.2); eCRCL 24 ML/MIN; eGFR 40 ML/MIN
[2022-12-22 07:23] LABS: POTASSIUM 4.1 MMOL/L (3.5-5.1)
[2022-12-22] MEDS: furosemide 40mg/4ml inj IV SCH ×2 (07:53→20:00)
[2022-12-22] MEDS: sertraline 50mg tablet PO SCH (07:54)
[2022-12-22] MEDS: multivitamins, therapeutics tablet PO SCH (07:54)
[2022-12-22] MEDS: clopidogrel 75mg tablet PO SCH (07:54)
[2022-12-22] MEDS: cholecalciferol (vitamin D3) 1,000 unit (25mcg) tablet PO SCH (07:54)
[2022-12-22] MEDS: levoTHYROXINE 25mcg tablet PO SCH (07:54)
[2022-12-22] MEDS: levoTHYROXINE 112mcg tablet PO SCH (07:54)
[2022-12-22] MEDS: diltiazem CD 120mg capsule (once-daily) PO SCH (07:54)
[2022-12-22] MEDS: pantoprazole 40mg Tablet.DR PO SCH (07:54)
[2022-12-22] MEDS: aspirin 81mg, enteric-coated 1 TAB TABLET.DR PO SCH (07:54)
[2022-12-22] MEDS: sennosides/docusate sodium tablet PO SCH (07:54)
[2022-12-22] MEDS: potassium chloride 10mEq ER tablet PO SCH (07:55)
[2022-12-22] MEDS: lactose-reduced food (Ensure Enlive) - 237ml bottle PO SCH ×3 (08:00→18:00)
[2022-12-22] MEDS: docusate sod 100mg capsule PO SCH ×2 (08:00→20:09)
[2022-12-22] MEDS: K and/or MAG REPLACEMENT MC SCH ×2 (08:00→20:00)
[2022-12-22] MEDS: ferrous sulfate 300mg/5ml UD oral liquid PO SCH ×3 (08:02→17:32)
[2022-12-22] MEDS ORDERED: furosemide 20 MG/2 ML vial IV ONE ×2 (11:05→13:30)
[2022-12-22] MEDS: DOBUTamine-DoBUTrex 500mg/D5W 250 ML IV SCH ×2 (13:45→17:33)
--- NOTE | 2022-12-22 16:13 | NUR ---
Pt provided with a full bed bath. PureWick device replaced, intact. She is resting comfortably in bed at this time with family at bedside. No complaints or s/s of distress. Will continue to monitor. Addendum: 12/22/22 at 1617 by Tatianna DAVIS-NU Dressing to biliary drain noted to be saturated. Dressing changed with no c/o pain or discomfort. Pt tolerated well. Dressing is now CDI.
--- NOTE | 2022-12-22 18:16 | NUR ---
Problems reprioritized. Patient report given, questions answered & plan of care reviewed with Jimena. Addendum: 12/22/22 at 1816 by Gilson Neil RN Amended: Links added.
[2022-12-22] MEDS ORDERED: FERROUS SULFATE 142 MG TABLET.ER (45mg elemental) PO SCH (20:00)
[2022-12-22] MEDS: ROSUVASTATIN CALCIUM 5 MG TABLET PO SCH (20:10)
[2022-12-23] VITALS (21 sets, daily range): BP systolic 81–113; BP diastolic 46–76; PULSE 65–110; RESP 14–26; TEMP 96.7–97.7; O2SAT 92–100
[2022-12-23] MEDS: HYDROmorphone 2mg tablet PO PRN ×3 (03:05→20:29)
--- NOTE | 2022-12-23 06:28 | NUR ---
Problems reprioritized. Patient report given, questions answered & plan of care reviewed with Shagufta
--- NOTE | 2022-12-23 06:29 | NUR ---
Patient in room PCU 3012. I have received report from SHEA Resendiz and had the opportunity to ask questions and assume patient care.
[2022-12-23 06:57] LABS: BASOPHILS % (AUTO) 0.4 % (0-1); EOSINOPHILS % (AUTO) 0.5 % (0-6); HEMOGLOBIN 10.8 g/dl (12.0-16.0); LYMPHOCYTES # (AUTO) 1.1 X10'3 (1.1-4.8); LYMPHOCYTES % (AUTO) 12.3 % (21-51); MEAN CORPUSCULAR HEMOGLOBIN 28.2 PG (27.0-31.0); MEAN CORPUSCULAR HGB CONC 32.7 g/dL (33.0-36.5); MEAN PLATELET VOLUME 8.4 FL (7.4-10.4); MONOCYTES # (AUTO) 0.8 X10'3 (0-0.9); MONOCYTES % (AUTO) 9.1 % (2-12); NEUTROPHILS # (AUTO) 7.1 X10'3 (1.8-7.7); NEUTROPHILS % (AUTO) 77.7 % (42-75); PLATELET COUNT 171 X10'3 (140-440); RED BLOOD COUNT 3.84 X10'6 (4.20-5.60); RED CELL DISTRIBUTION WIDTH 16.7 % (11.5-14.5); WHITE BLOOD COUNT 9.1 X10'3 (4.5-11.0)
[2022-12-23] MEDS: levoTHYROXINE 112mcg tablet PO SCH (07:00)
[2022-12-23 07:20] LABS: ALANINE AMINOTRANSFERASE 24 U/L (12-78); ALBUMIN 2.8 G/DL (3.4-5.0); ALBUMIN/GLOBULIN RATIO 1.1 (1.1-1.5); ALKALINE PHOSPHATASE 578 IU/L (46-116); ANION GAP 7 (8-16); ASPARTATE AMINO TRANSFERASE 21 U/L (10-37); BILIRUBIN,TOTAL 1.7 MG/DL (0.1-1.0); BLOOD UREA NITROGEN 25 MG/DL (7-18); CALCIUM 9.6 MG/DL (8.5-10.1); CHLORIDE 98 MMOL/L (99-107); CREATININE 1.19 MG/DL (0.40-0.90); GLUCOSE 115 MG/DL (70-104); MAGNESIUM 2.7 MG/DL (1.5-2.4); POTASSIUM 3.6 MMOL/L (3.5-5.1); PRO BRAIN NATRIURETIC PEPTIDE 6583 PG/ML (0-450); SODIUM 135 MMOL/L (135-145); TOTAL CARBON DIOXIDE 30.4 MMOL/L (24-32); TOTAL PROTEIN 5.4 G/DL (6.4-8.2); eCRCL 26 ML/MIN; eGFR 43 ML/MIN
[2022-12-23] MEDS: levoTHYROXINE 25mcg tablet PO SCH (07:21)
[2022-12-23] MEDS: pantoprazole 40mg Tablet.DR PO SCH (07:22)
[2022-12-23] MEDS: K and/or MAG REPLACEMENT MC SCH ×2 (08:00→20:00)
[2022-12-23] MEDS: lactose-reduced food (Ensure Enlive) - 237ml bottle PO SCH ×3 (08:00→18:09)
[2022-12-23] MEDS: diltiazem CD 120mg capsule (once-daily) PO SCH (09:07)
[2022-12-23] MEDS: cholecalciferol (vitamin D3) 1,000 unit (25mcg) tablet PO SCH (09:07)
[2022-12-23] MEDS: aspirin 81mg, enteric-coated 1 TAB TABLET.DR PO SCH (09:08)
[2022-12-23] MEDS: ferrous sulfate 300mg/5ml UD oral liquid PO SCH ×3 (09:09→17:46)
[2022-12-23] MEDS: docusate sod 100mg capsule PO SCH ×2 (09:09→20:29)
[2022-12-23] MEDS: sennosides/docusate sodium tablet PO SCH (09:09)
[2022-12-23] MEDS: sertraline 50mg tablet PO SCH (09:09)
[2022-12-23] MEDS: potassium chloride 10mEq ER tablet PO SCH (09:10)
[2022-12-23] MEDS: clopidogrel 75mg tablet PO SCH (09:10)
[2022-12-23] MEDS: multivitamins, therapeutics tablet PO SCH (09:10)
[2022-12-23] MEDS: furosemide 40mg/4ml inj IV SCH ×2 (09:11→20:33)
--- NOTE | 2022-12-23 18:42 | NUR ---
Problems reprioritized. Patient report given, questions answered & plan of care reviewed with SHEA Juan.
[2022-12-23] MEDS: ROSUVASTATIN CALCIUM 5 MG TABLET PO SCH (20:28)
--- NOTE | 2022-12-23 22:58 | NUR ---
Paged PAGER ID: [phone] MESSAGE: [phone] Sarah Harris, Pt has break through back pain 09/21. Pt is DNR comfort care with only PO Dilaudid for pain, which is insufficient. She is allergic to all other pain meds aside from Dilaudid. Could we please do IV Dilaudid Thanks! Yessica [phone]
--- NOTE | 2022-12-23 23:00 | NUR ---
MD called and aware of pt condition. MD gave order for IV Dilaudid 2mg Q2H PRN for pain. Order read back and placed per MD.
[2022-12-23] MEDS ORDERED: HYDROmorphone 1 mg/ml syringe IV PRN (23:10)
[2022-12-24] VITALS (15 sets, daily range): BP systolic 61–104; BP diastolic 36–67; PULSE 66–110; RESP 12–26; TEMP 97.4–98.6; O2SAT 95–100
--- NOTE | 2022-12-24 04:16 | NUR ---
I was present at the time of assessment and agree with all physical assesment findings from Fortino HUMPHREY
[2022-12-24] MEDS: HYDROmorphone 2mg tablet PO PRN ×2 (06:06→22:25)
--- NOTE | 2022-12-24 06:09 | NUR ---
Patient in room PCU 3012. I have received report from SHEA Juan and had the opportunity to ask questions and assume patient care.
--- NOTE | 2022-12-24 06:24 | NUR ---
Problems reprioritized. Patient report given, questions answered & plan of care reviewed with Shagufta VALDIVIA.
[2022-12-24 06:42] LABS: BASOPHILS % (AUTO) 0.2 % (0-1); EOSINOPHILS % (AUTO) 0.3 % (0-6); HEMATOCRIT 32.8 % (35.0-45.0); HEMOGLOBIN 10.7 g/dl (12.0-16.0); LYMPHOCYTES # (AUTO) 1.1 X10'3 (1.1-4.8); LYMPHOCYTES % (AUTO) 8.7 % (21-51); MEAN CORPUSCULAR HEMOGLOBIN 28.3 PG (27.0-31.0); MEAN CORPUSCULAR HGB CONC 32.8 g/dL (33.0-36.5); MEAN CORPUSCULAR VOLUME 86.2 FL (78-98); MEAN PLATELET VOLUME 8.7 FL (7.4-10.4); MONOCYTES # (AUTO) 0.8 X10'3 (0-0.9); MONOCYTES % (AUTO) 6.5 % (2-12); NEUTROPHILS # (AUTO) 10.2 X10'3 (1.8-7.7); NEUTROPHILS % (AUTO) 84.3 % (42-75); PLATELET COUNT 162 X10'3 (140-440); WHITE BLOOD COUNT 12.1 X10'3 (4.5-11.0)
[2022-12-24 07:02] LABS: ALANINE AMINOTRANSFERASE 31 U/L (12-78); ALBUMIN 3.1 G/DL (3.4-5.0); ALBUMIN/GLOBULIN RATIO 1.1 (1.1-1.5); ALKALINE PHOSPHATASE 618 IU/L (46-116); ANION GAP 8 (8-16); ASPARTATE AMINO TRANSFERASE 39 U/L (10-37); BILIRUBIN,TOTAL 2.5 MG/DL (0.1-1.0); BLOOD UREA NITROGEN 33 MG/DL (7-18); BUN/CREATININE RATIO 25.8 (10.0-20.0); CALCIUM 8.4 MG/DL (8.5-10.1); CHLORIDE 95 MMOL/L (99-107); CREATININE 1.28 MG/DL (0.40-0.90); GLUCOSE 112 MG/DL (70-104); SODIUM 131 MMOL/L (135-145); TOTAL CARBON DIOXIDE 28.2 MMOL/L (24-32); TOTAL PROTEIN 5.9 G/DL (6.4-8.2); eCRCL 24 ML/MIN; eGFR 39 ML/MIN
[2022-12-24] MEDS: pantoprazole 40mg Tablet.DR PO SCH (07:21)
[2022-12-24] MEDS: levoTHYROXINE 112mcg tablet PO SCH (07:21)
[2022-12-24] MEDS: levoTHYROXINE 25mcg tablet PO SCH (07:22)
[2022-12-24] MEDS ORDERED: furosemide 40mg/4ml inj IV PRN (08:00)
[2022-12-24] MEDS: diltiazem CD 120mg capsule (once-daily) PO SCH (08:24)
[2022-12-24] MEDS: K and/or MAG REPLACEMENT MC SCH ×2 (08:24→20:22)
[2022-12-24] MEDS: cholecalciferol (vitamin D3) 1,000 unit (25mcg) tablet PO SCH (08:25)
[2022-12-24] MEDS: docusate sod 100mg capsule PO SCH ×2 (08:25→20:00)
[2022-12-24] MEDS: multivitamins, therapeutics tablet PO SCH (08:25)
[2022-12-24] MEDS: sertraline 50mg tablet PO SCH (08:25)
[2022-12-24] MEDS: clopidogrel 75mg tablet PO SCH (08:26)
[2022-12-24] MEDS: aspirin 81mg, enteric-coated 1 TAB TABLET.DR PO SCH (08:26)
[2022-12-24] MEDS: lactose-reduced food (Ensure Enlive) - 237ml bottle PO SCH ×3 (08:27→18:01)
[2022-12-24] MEDS: potassium chloride 10mEq ER tablet PO SCH (08:27)
[2022-12-24] MEDS: sennosides/docusate sodium tablet PO SCH (08:27)
[2022-12-24] MEDS: ferrous sulfate 300mg/5ml UD oral liquid PO SCH ×3 (08:27→17:40)
--- NOTE | 2022-12-24 09:32 | NUR ---
Reassessment: Pt has been eating well, documented with average 61% PO intake of meals since admit meeting 94% estimated energy needs and 95% estimated protein needs. LBM 12/22 per EMR. Pt receiving routine bowel care with additional PRN bowel care available. Noted pt has been made DNR with comfort care. No nutrition intervention implemented at this time. Will continue to follow per LOS. Recommendations: 1. Bowel care per comfort care measures Addendum: 12/24/22 at [address] Amended: Links added.
[2022-12-24] MEDS: DOBUTamine-DoBUTrex 500mg/D5W 250 ML IV SCH ×2 (13:45→22:22)
[2022-12-24] MEDS: ROSUVASTATIN CALCIUM 5 MG TABLET PO SCH (21:00)
[2022-12-25 02:00] VITALS: BP 109/60; PULSE 78; RESP 12; TEMP 98.1; O2SAT 99
--- NOTE | 2022-12-25 06:18 | NUR ---
Problems reprioritized. Patient report given, questions answered & plan of care reviewed with SHEA Whitney.
--- NOTE | 2022-12-25 06:22 | NUR ---
Patient in room U 3012. I have received report from Shagufta VALDIVIA and had the opportunity to ask questions and assume patient care. Pt sleeping, No distress. Addendum: 12/25/22 at 0622 by Chelo Blount RN Amended: Links added.
[2022-12-25 06:30] VITALS: BP 121/63; PULSE 72; RESP 13; TEMP 97.3; O2SAT 100
[2022-12-25 07:15] VITALS: RESP 13; O2SAT 100
[2022-12-25] MEDS: K and/or MAG REPLACEMENT MC SCH (08:00)
[2022-12-25] MEDS: pantoprazole 40mg Tablet.DR PO SCH (08:21)
[2022-12-25] MEDS: levoTHYROXINE 25mcg tablet PO SCH (08:22)
[2022-12-25] MEDS: levoTHYROXINE 112mcg tablet PO SCH (08:22)
[2022-12-25] MEDS: sertraline 50mg tablet PO SCH (08:23)
[2022-12-25] MEDS: multivitamins, therapeutics tablet PO SCH (08:23)
[2022-12-25] MEDS: aspirin 81mg, enteric-coated 1 TAB TABLET.DR PO SCH (08:23)
[2022-12-25] MEDS: clopidogrel 75mg tablet PO SCH (08:24)
[2022-12-25] MEDS: diltiazem CD 120mg capsule (once-daily) PO SCH (08:24)
[2022-12-25] MEDS: sennosides/docusate sodium tablet PO SCH (08:25)
[2022-12-25] MEDS: ferrous sulfate 300mg/5ml UD oral liquid PO SCH ×2 (08:25→13:10)
[2022-12-25] MEDS: cholecalciferol (vitamin D3) 1,000 unit (25mcg) tablet PO SCH (08:25)
[2022-12-25] MEDS: potassium chloride 10mEq ER tablet PO SCH (08:26)
[2022-12-25] MEDS: docusate sod 100mg capsule PO SCH (08:26)
[2022-12-25] MEDS: lactose-reduced food (Ensure Enlive) - 237ml bottle PO SCH ×2 (08:26→13:26)
[2022-12-25 10:56] VITALS: PULSE 66; RESP 16; O2SAT 99
[2022-12-25 11:28] VITALS: BP 115/62; PULSE 66; RESP 16; TEMP 97.5; O2SAT 99
[2022-12-25] MEDS ORDERED: acetaminophen 325mg tablet PO PRN (12:50)
[2022-12-25] MEDS ORDERED: ibuprofen 200mg tablet PO ONE (13:00)
[2022-12-25 15:00] VITALS: BP 117/53; PULSE 64; RESP 18; TEMP 97.8; O2SAT 98
--- NOTE | 2022-12-25 15:35 | NUR ---
Report called to Lo VALDIVIA at [facility]. All questions answered. Pt with all belongings. Pt left hospital via [facility]. Addendum: 12/25/22 at 1615 by Chelo Blount RN Amended: Links added.
== END 2022-12-25 15:30 | DRG 280 ==
LOC: ER 19:46 → ED HOLD 21:58 → PCU 3S 12-20 22:05
PROVIDERS: ADMIT Internal Medicine; ATTEND Internal Medicine
DX: I13.0 Hypertensive heart and chronic kidney disease with heart failure and stage 1 through stage 4 chronic kidney disease, or unspecified chronic kidney disease (principal); I21.A1 Myocardial infarction type 2; I50.43 Acute on chronic combined systolic (congestive) and diastolic (congestive) heart failure; K83.1 Obstruction of bile duct; C85.10 Unspecified B-cell lymphoma, unspecified site; E46 Unspecified protein-calorie malnutrition; I48.20 Chronic atrial fibrillation, unspecified; J96.10 Chronic respiratory failure, unspecified whether with hypoxia or hypercapnia; Z66 Do not resuscitate; I42.0 Dilated cardiomyopathy; Z68.20 Body mass index [BMI] 20.0-20.9, adult; E78.5 Hyperlipidemia, unspecified; K21.9 Gastro-esophageal reflux disease without esophagitis; E03.9 Hypothyroidism, unspecified; I25.10 Atherosclerotic heart disease of native coronary artery without angina pectoris; Z77.22 Contact with and (suspected) exposure to environmental tobacco smoke (acute) (chronic); D50.9 Iron deficiency anemia, unspecified; I35.0 Nonrheumatic aortic (valve) stenosis; I27.20 Pulmonary hypertension, unspecified; N18.9 Chronic kidney disease, unspecified; J44.9 Chronic obstructive pulmonary disease, unspecified; G89.29 Other chronic pain; I25.2 Old myocardial infarction; Z95.5 Presence of coronary angioplasty implant and graft; Z90.49 Acquired absence of other specified parts of digestive tract; Z82.49 Family history of ischemic heart disease and other diseases of the circulatory system; Z85.828 Personal history of other malignant neoplasm of skin; Z63.4 Disappearance and death of family member; Z79.01 Long term (current) use of anticoagulants; Z88.0 Allergy status to penicillin; Z88.6 Allergy status to analgesic agent; Z88.1 Allergy status to other antibiotic agents; Z88.8 Allergy status to other drugs, medicaments and biological substances; Z79.899 Other long term (current) drug therapy; Z79.82 Long term (current) use of aspirin
CPT/HCPCS: 36415; 71045; 80053; 82607; 82728; 82948; 83540; 83550; 83735; 83880; 84484; 85025; 85610; 94640; 94760; 97110; 97161; 97530; 99285; A4649; A6212; A6213; A6250; A6449; G0378; J1170; J1250; J1940; J7030